=== PATIENT | female | born 1940 | race Caucasian/White ===

== ENCOUNTER 2019-09-24 06:46 | Inpatient (IN) | payer OTHER ==
[~2019-09-24] VITALS: Ht 160 cm; Wt 93.6 kg
[~2019-09-24 06:46] MED LIST: AMIT50 PO; ASPI325 PO; ATOR80 PO; CLON.5 PO; EZET10 PO; HYDACE5325 PO; LISHYD1012 PO; MECL25 PO; MELA3 PO; METF500 PO; POTCHL20ER PO; PROM25 PO; SPIHYD; VENL75; [UNRECOGNIZED DRUG - OTHER]
[2019-09-24 07:10] LABS: BASOPHILS ABSOLUTE AUTO 0.11 K/mm3 (0.00-0.23); BASOPHILS PERCENT AUTO 1 % (0-2); EOSINOPHILS ABSOLUTE AUTO 0.27 K/mm3 (0.00-0.68); EOSINOPHILS PERCENT AUTO 2 % (0-6); Hematocrit 46.5 % (33.0-51.0); Hemoglobin 14.1 g/dL (11.5-16.0); IMMATURE GRAN ABSOLUTE AUTO 0.11 K/mm3 (0.00-0.10); IMMATURE GRAN PERCENT AUTO 1 % (0-1); LYMPHOCYTES PERCENT AUTO 37 % (21-46); MONOCYTES ABSOLUTE AUTO 0.99 K/mm3 (0.16-1.47); MONOCYTES PERCENT AUTO 6 % (4-13); Mean Corpuscular HGB 26.4 pg (26.0-34.0); Mean Corpuscular HGB Conc 30.3 g/dL (31.5-36.5); Mean Corpuscular Volume 87 fL (80-100); Mean Platelet Volume 10.4 fL (9.1-12.4); NEUTROPHILS ABSOLUTE AUTO 8.68 K/mm3 (1.96-9.15); NEUTROPHILS PERCENT AUTO 54 % (41-73); Platelet Count 398 K/mm3 (150-400); RDW Coefficient Variation 14.1 % (11.7-14.2); Red Blood Cell Count 5.34 M/mm3 (3.80-5.20); White Blood Cell Count 16.16 K/mm3 (4.00-11.30)
[2019-09-24] MEDS ORDERED: CLOP75 PO (07:24)
[2019-09-24] MEDS ORDERED: ASPI81CH PO (07:24)
[2019-09-24] MEDS ORDERED: METO25ER PO (07:26)
[2019-09-24] MEDS ORDERED: FLAX PO (07:27)
[2019-09-24] MEDS ORDERED: THERA1 EACH PO (07:27)
[2019-09-24 07:42] LABS: Alanine Aminotransfer (ALT/SGP 34 U/L (12-78); Albumin/Globulin Ratio 0.9 (0.8-1.8); Alk Phos 113 U/L (50-136); Anion Gap 8 mmol/L (6-16); Aspartate Aminotrans (AST/SGOT 24 U/L (12-37); Bilirubin, Total 0.2 mg/dL (0.1-1.0); Blood Urea Nitrogen 19 mg/dL (8-24); CO2, Blood 22 mmol/L (21-32); Calcium, Blood 9.3 mg/dL (8.5-10.1); Chloride, Blood 104 mmol/L (98-108); Creatinine, Blood 0.61 mg/dL (0.40-1.00); Globulin, Blood 4.4 g/dL (2.2-4.0); Glomerular Filtration Rate >60 (60-); Glucose, Blood 186 mg/dL (70-99); Potassium, Blood 4.6 mmol/L (3.5-5.5); Sodium, Blood 134 mmol/L (136-145); Total Protein, Blood 8.4 g/dL (6.4-8.2)
[2019-09-24 09:41] LABS: Magnesium, Blood 2.2 mg/dL (1.6-2.4)
[2019-09-24 09:42] LABS: Thyroid Stimulating Hormone 3.11 uIU/mL (0.360-4.800)
[2019-09-24 13:45] LABS: Source, Urine Clean Catch
[2019-09-24 13:50] LABS: Bilirubin, Urine Neg (Neg); Blood, Urine 1+ (Neg); Glucose Qualitative, Urine 1+ (Neg); Ketones, Urine Neg (Neg); Leukocyte Esterase, Urine Neg (Neg); Nitrite, Urine Neg (Neg); Protein, Urine 4+ (Neg); Urobilinogen, Urine NORM (Normal)
[2019-09-24 13:56] LABS: Appearance, Urine Clear (Clear); Color, Urine Yellow (P-Yellow)
[2019-09-24 14:01] LABS: Amorphous Mod (0-Heavy); Bacteria Mod /hpf; Granular Casts 0-2 /lpf (0); Hyaline Casts 0-2 /lpf (0-2); Mucus Light (0-Heavy); Squamous Epithelial Cells Few /hpf (Few); White Blood Cells, Urine 0-2 /hpf (0-5)
--- NOTE | 2019-09-24 14:30 | NUR ---
PT ARRIVED TO PCU 9 VIA GURNEY FROM ED. REPORT FROM SANJAY ECHEVERRIA. PT AWAKE A/OX3, PLEASANT AND COOPERATIVE WITH CARE, HURTS HER BACK TO LAY FLAT, OTHERWISE NO PAIN, STATES SHE IS BREATHING MUCH BETTER NOW, SATS ARE 91% ON RA, RESP EVEN AND MILDLY LABORED, NO COUGH NOTED, HRR, TELE IN PLACE RUNNING SR WITH LOTS OF PACS, 3+ EDEMA NOTED TO LEFT LE, SHE STATES HER WHOLE LEFT SIDE IS OFF BECAUSE OF 2 CVA'S SHE HAD IN 2016 AND 2017, FERMENTER ARE PRETTY EQUAL, UNABLE TO MOVE LEFT FOOT EXCEPT GROSS MOVEMENT, JAMAAL, IV X2 TO LEFT HAND AN RIGHT AC, SITES ARE CLEAR AND PATENT, S.L. BTX4, ABD LARGE SOFT NONTENDER, SAMUEL CATH DRAINING CLEAR YELLOW URINE, SKIN HAS VERY DRY FEET, OTHERWISE C/W/D, MOVES UPPER EXT WELL, RIGHT LEG IS STRONG, ORIENTED TO ROOM LAYOUT AND CALL SYSTEM, CALL LIGHT IN REACH.
[2019-09-24] MEDS ORDERED: METO25ER (14:58)
--- NOTE | 2019-09-24 16:17 | NUR ---
ECHOCARDIOGRAM COMPLETED
--- NOTE | 2019-09-24 18:39 | NUR ---
PT DAUGHTER IN TO ASSIST HER WITH DINNER, PT DENIES COMPLAINTS EXCEPT THAT HER LEG HURTS. NO FURTHER CHANGES THIS SHIFT. CALL LIGHT IN REACH.
--- NOTE | 2019-09-24 20:45 | NUR ---
Assumed care Pt alert and oriented, slow to respond at times. VSS. Bipap in room but breathing even and unlabored on RA. Denies SOB. q2 turns, compliant with care and repositions.Skin overall CDI, edema to BLE. See shift assessment for detailed systems assessment. Pt is blind, hard of hearing. Instructed to use call light, call light placed in bed and accessible to pt. Pt uses call light on and off. Sometimes calls out for needs. Lott patent and draining. Esperanza care provided to pt. moves all extremities independantly. Pt with moderate anxiety. Repositioned which aided in comfort and decreased anxiety per pt. Will continue to monitor. no acute concern at this time. pt appears comfortable and in no apparent sign of distress.
--- NOTE | 2019-09-25 02:59 | NUR ---
No acute changes this shift. VSS. remains on RA. Report off to JACKI Jenkins who assumes care.
[2019-09-25 04:27] LABS: BASOPHILS ABSOLUTE AUTO 0.03 K/mm3 (0.00-0.23); BASOPHILS PERCENT AUTO 0 % (0-2); EOSINOPHILS ABSOLUTE AUTO 0.09 K/mm3 (0.00-0.68); EOSINOPHILS PERCENT AUTO 1 % (0-6); Hematocrit 38.3 % (33.0-51.0); Hemoglobin 11.9 g/dL (11.5-16.0); IMMATURE GRAN ABSOLUTE AUTO 0.03 K/mm3 (0.00-0.10); IMMATURE GRAN PERCENT AUTO 0 % (0-1); LYMPHOCYTES ABSOLUTE AUTO 2.15 K/mm3 (0.84-5.20); LYMPHOCYTES PERCENT AUTO 21 % (21-46); MONOCYTES PERCENT AUTO 8 % (4-13); Mean Corpuscular HGB 26.4 pg (26.0-34.0); Mean Corpuscular HGB Conc 31.1 g/dL (31.5-36.5); Mean Corpuscular Volume 85 fL (80-100); Mean Platelet Volume 10.6 fL (9.1-12.4); NEUTROPHILS ABSOLUTE AUTO 7.07 K/mm3 (1.96-9.15); NEUTROPHILS PERCENT AUTO 70 % (41-73); Platelet Count 282 K/mm3 (150-400); RDW Coefficient Variation 14.2 % (11.7-14.2); RDW Standard Deviation 44.3 fL (35.1-46.3); White Blood Cell Count 10.17 K/mm3 (4.00-11.30)
[2019-09-25 04:44] LABS: Alanine Aminotransfer (ALT/SGP 27 U/L (12-78); Albumin, Blood 3.3 g/dL (3.4-5.0); Albumin/Globulin Ratio 0.9 (0.8-1.8); Alk Phos 89 U/L (50-136); Anion Gap 8 mmol/L (6-16); Aspartate Aminotrans (AST/SGOT 31 U/L (12-37); Bilirubin, Total 0.4 mg/dL (0.1-1.0); Blood Urea Nitrogen 14 mg/dL (8-24); Bun/Creatinine Ratio 20.5 (12.0-20.0); CO2, Blood 29 mmol/L (21-32); Calcium, Blood 8.5 mg/dL (8.5-10.1); Chloride, Blood 102 mmol/L (98-108); Creatinine, Blood 0.68 mg/dL (0.40-1.00); Globulin, Blood 3.7 g/dL (2.2-4.0); Glomerular Filtration Rate >60 (60-); Glucose, Blood 112 mg/dL (70-99); Potassium, Blood 3.6 mmol/L (3.5-5.5); Sodium, Blood 139 mmol/L (136-145)
[2019-09-25 11:41] LABS: Magnesium, Blood 2.1 mg/dL (1.6-2.4)
--- NOTE | 2019-09-25 20:15 | NUR ---
Assumed Care Pt presents sitting in bed, eyes closed. VSS. No apparent sign of distress. Pt conversing appropraitely overall with staff. Confused and forgetful at times. Pt uses call light occasionally, calls out at times for help. Pt instructed to use call light, bed alarm in place, room monitored closely as it is by the nurses station. Pt swallows medications whole with water. Refusing Lipitor "because it destroys your kidneys". Pt educated on risk/benefit of lipitor, continues to refuse. See shift assessment for detailed assessment. Requiring assistance with repositions and boosting q2. Compliant and cooperative with care. No acute concerns at start of shift. Will continue to monitor.
--- NOTE | 2019-09-26 02:19 | NUR ---
Pt, who was previously calm and cooperative with care suddenly becomes agitated. pt pulling on pryor cath saying "take this out of me right now". Pt assisted to BSC with two RN's and FWW, moderate assistance needed as pt has left sided weakness d/t previous cva. Pt capable of BSC transfer. Catheter removed per pt request at 0215. Will continue to monitor.
[2019-09-26 03:57] LABS: Hematocrit 38.4 % (33.0-51.0); Hemoglobin 12.2 g/dL (11.5-16.0); Mean Corpuscular HGB 27.1 pg (26.0-34.0); Mean Corpuscular HGB Conc 31.8 g/dL (31.5-36.5); Mean Corpuscular Volume 85 fL (80-100); Mean Platelet Volume 10.8 fL (9.1-12.4); Platelet Count 190 K/mm3 (150-400); RDW Coefficient Variation 14.4 % (11.7-14.2); RDW Standard Deviation 44.3 fL (35.1-46.3); Red Blood Cell Count 4.51 M/mm3 (3.80-5.20); White Blood Cell Count 9.31 K/mm3 (4.00-11.30)
[2019-09-26 04:25] LABS: Albumin, Blood 3.3 g/dL (3.4-5.0); Anion Gap 7 mmol/L (6-16); Blood Urea Nitrogen 12 mg/dL (8-24); Bun/Creatinine Ratio 21.1 (12.0-20.0); CHOL/HDL RATIO 4.1; CO2, Blood 26 mmol/L (21-32); Calcium, Blood 8.6 mg/dL (8.5-10.1); Chloride, Blood 104 mmol/L (98-108); Cholesterol 200 mg/dL (50-200); Creatinine, Blood 0.57 mg/dL (0.40-1.00); Glomerular Filtration Rate >60 (60-); Glucose, Blood 108 mg/dL (70-99); HDL Cholesterol 49 mg/dL (>39); LDL/HDL RATIO 2.5; Low Density Lipoprotein Chol 124 mg/dL (0-110); Phosphorus, Blood 3.3 mg/dL (2.5-4.9); Potassium, Blood 4.2 mmol/L (3.5-5.5); Sodium, Blood 137 mmol/L (136-145); Triglycerides 135 mg/dL (30-160); Very Low Density Lipoprot Chol 27 mg/dL (6-32)
--- NOTE | 2019-09-26 04:38 | NUR ---
Shift Summary VSS. Confused, forgetful, agitated at end of this shift. Pt alert and conversive. Lott Cath removed at 0215, awaiting pt void at this time. Pt has set off call light x3 times this shift. Pt up with 2 to bsc. Edema 2+to ble. Pt with diminished lung sounds, o2 saturations >92%. Denies feeling SOB, needs assistance with repositions and boosts. VSS. Will continue to monitor until day RN assumes care.
--- NOTE | 2019-09-26 11:05 | NUR ---
AM NOTE PT AWAKEND THIS MORNING ANGRY, CUSSING, CONFUSED. SHE THOUGHT WE WERE IN HER HOME. IT TOOK AWHILE OF SITTING WITH HER AND TALKING FOR HER TO REORIENT TO LOCATION AND THAT SHE WAS SAFE. CONTINUE POT.
--- NOTE | 2019-09-26 21:01 | NUR ---
Assumed care pt presents sitting in chair, flat affect, cooperative. VSS. No apprent sign of distres. Alert and oriented, following commands appropriately. Fluid restriction of 1500 total qD, 500 ml available for this shift. See shift assessment for detailed assessment. Breathing even and unlabored on RA. Pt takes medications whole with water. Pt refusing Lipitor. Educated provided. Pt up to BSC with one and fww. Tolerated well. Call light in reach; bed alarm on. Will continue to monitor. No acute concerns a this time.
[2019-09-27 04:21] LABS: Anion Gap 7 mmol/L (6-16); Blood Urea Nitrogen 19 mg/dL (8-24); Bun/Creatinine Ratio 31.2 (12.0-20.0); CO2, Blood 28 mmol/L (21-32); Calcium, Blood 8.7 mg/dL (8.5-10.1); Chloride, Blood 104 mmol/L (98-108); Creatinine, Blood 0.61 mg/dL (0.40-1.00); Glomerular Filtration Rate >60 (60-); Glucose, Blood 104 mg/dL (70-99); Potassium, Blood 3.8 mmol/L (3.5-5.5); Sodium, Blood 139 mmol/L (136-145)
--- NOTE | 2019-09-27 06:06 | NUR ---
Shift Summary No acute events overnight. No changes from assumption of care note. Pt slept for approx 8 hours this shift. up to bsc with 1 and fww, tolerated well. No PEREZ. No acute changes from shift assessment. VSS. Pt alert and oriented throughout night. Will continue to monitor and provide care until day RN assumes care.
--- NOTE | 2019-09-27 08:26 | NUR ---
AM NOTE... ASSUMED CARE OF PT APROX 0700. PT IS A&Ox4 AND WAS ADMITTED FOR NEW ONSET CHF. PT IS ON 1.5 L FLUID RESTRICTION. PT WAS SWITCHED OR ORAL DIURETICS TODAY. PT IS UP IN THE CHAIR FOR BREAKFAST ASKING TO D/C HOME TODAY. PT'S VS STABLE. L/S CLEAR T/O ON RA. PT HAS TRACE EDEMA TO HER BLE. BT PRESENT AND NORMOACTIVE ABD IS SOFT AND NONTENDER TO PALP. CALL LIGHT IN REACH WILL CONTINUE TO MONITOR.
[2019-09-27] MEDS ORDERED: ATOR20 PO (11:11)
[2019-09-27] MEDS ORDERED: Prinivil10 MG PO (11:12)
[2019-09-27] MEDS ORDERED: TORSE20 PO (11:13)
== END 2019-09-27 13:06 | disposition home or self-care (01) | DRG 280 ==
LOC: ER 06:46 → PCU 09:25
PROVIDERS: Emergency Medicine; Hospitalist; Nurse Practitioner Acute Care; ADMIT Internal Medicine
DX: I11.0 Hypertensive heart disease with heart failure (principal); I50.21 Acute systolic (congestive) heart failure; I21.4 Non-ST elevation (NSTEMI) myocardial infarction; J96.01 Acute respiratory failure with hypoxia; J44.9 Chronic obstructive pulmonary disease, unspecified; E11.9 Type 2 diabetes mellitus without complications; E78.5 Hyperlipidemia, unspecified; E66.01 Morbid (severe) obesity due to excess calories; F41.1 Generalized anxiety disorder; R65.10 Systemic inflammatory response syndrome (SIRS) of non-infectious origin without acute organ dysfunction; M81.0 Age-related osteoporosis without current pathological fracture; F32.9 Major depressive disorder, single episode, unspecified; Z66 Do not resuscitate; Z86.73 Personal history of transient ischemic attack (TIA), and cerebral infarction without residual deficits; Z87.891 Personal history of nicotine dependence; Z88.5 Allergy status to narcotic agent; Z79.82 Long term (current) use of aspirin; Z79.02 Long term (current) use of antithrombotics/antiplatelets; Z79.84 Long term (current) use of oral hypoglycemic drugs
CPT/HCPCS: 36415; 51702; 71045; 71260; 80048; 80053; 80061; 80069; 81001; 82947; 83036; 83605; 83735; 83880; 84100; 84145; 84443; 84484; 85025; 85027; 87086; 93005; 93010; 93306; 94660; 96365-59; 96368; 96372-59; 96375-59; 97116; 97162; 97166; 97530; 99285-25; A9270-GY; J0456; J0696; J1650; J1940; J2060; J7050; Q9967

== ENCOUNTER 2020-01-16 13:26 | Inpatient (IN) | payer OTHER ==
[~2020-01-16] VITALS: Ht 160 cm; Wt 111.1 kg
[~2020-01-16 13:26] MED LIST changes: +ATOR20 PO; +Aspir 8181 MG PO; +CLOP75 PO; +Daily Multiple1 EACH PO; +FLAX PO; +METO25ER PO; +Prinivil10 MG PO; +TORSE20 PO
[2020-01-16 14:21] LABS: BASOPHILS ABSOLUTE AUTO 0.04 K/mm3 (0.00-0.23); BASOPHILS PERCENT AUTO 0 % (0-2); EOSINOPHILS ABSOLUTE AUTO 0.06 K/mm3 (0.00-0.68); EOSINOPHILS PERCENT AUTO 0 % (0-6); Hematocrit 29.5 % (33.0-51.0); Hemoglobin 9.1 g/dL (11.5-16.0); IMMATURE GRAN ABSOLUTE AUTO 0.07 K/mm3 (0.00-0.10); IMMATURE GRAN PERCENT AUTO 1 % (0-1); LYMPHOCYTES ABSOLUTE AUTO 2.16 K/mm3 (0.84-5.20); LYMPHOCYTES PERCENT AUTO 16 % (21-46); MONOCYTES ABSOLUTE AUTO 0.41 K/mm3 (0.16-1.47); MONOCYTES PERCENT AUTO 3 % (4-13); Mean Corpuscular HGB 26.7 pg (26.0-34.0); Mean Corpuscular HGB Conc 30.8 g/dL (31.5-36.5); Mean Corpuscular Volume 87 fL (80-100); Mean Platelet Volume 10.8 fL (9.1-12.4); NEUTROPHILS ABSOLUTE AUTO 11.23 K/mm3 (1.96-9.15); NEUTROPHILS PERCENT AUTO 80 % (41-73); Platelet Count 291 K/mm3 (150-400); RDW Coefficient Variation 13.9 % (11.7-14.2); RDW Standard Deviation 43.9 fL (35.1-46.3); Red Blood Cell Count 3.41 M/mm3 (3.80-5.20); White Blood Cell Count 13.97 K/mm3 (4.00-11.30)
[2020-01-16 14:39] LABS: Alanine Aminotransfer (ALT/SGP 28 U/L (12-78); Albumin, Blood 3.2 g/dL (3.4-5.0); Alk Phos 76 U/L (50-136); Anion Gap 7 mmol/L (6-16); Aspartate Aminotrans (AST/SGOT 25 U/L (12-37); Bilirubin, Total 0.4 mg/dL (0.1-1.0); Blood Urea Nitrogen 44 mg/dL (8-24); Bun/Creatinine Ratio 71.8 (12.0-20.0); CO2, Blood 25 mmol/L (21-32); Calcium, Blood 8.6 mg/dL (8.5-10.1); Chloride, Blood 108 mmol/L (98-108); Creatinine, Blood 0.61 mg/dL (0.40-1.00); Globulin, Blood 3.3 g/dL (2.2-4.0); Glomerular Filtration Rate >60 (60-); Glucose, Blood 182 mg/dL (70-99); Sodium, Blood 140 mmol/L (136-145); Total Protein, Blood 6.5 g/dL (6.4-8.2); Troponin I 0.039 ng/mL (0.000-0.040)
[2020-01-16] MEDS ORDERED: Pravachol40 MG PO (17:22)
[2020-01-16] MEDS ORDERED: LOSA25 PO (17:22)
[2020-01-16 17:48] LABS: Percent Saturation 17.9 % (15.0-50.0)
--- NOTE | 2020-01-16 18:13 | NUR ---
PT TRANSFERRED TO [facility] VIA GURNEY FROM ER. History, Chart, Medications and Allergies reviewed before start of procedure. Lungs clear T/O to Auscultation. Patient confirms NPO status and agrees with scheduled surgery. PT TO BE ADMITTED TO ROOM 331.
--- NOTE | 2020-01-16 18:52 | NUR ---
01/16/20 1852 Macarena Mena History, Chart, Medications and Allergies reviewed before start of procedure.PATIENT CONFIRMS NPO STATUS AND AGREES WITH SCHEDULED PROCEDURE. MONITOR INTACT WITH CONTINUOUS PULSE OXIMETRY AND INTERMITTENT BP. O2 VIA N/C INTACT THROUGHOUT SEDATION/PROCEDURE. 3-LEAD EKG REVIEWED WITH PHYSICIAN PRIOR TO START OF PROCEDURE. DR. WOOTEN PROVIDING MAC. Bite Block Placed
--- NOTE | 2020-01-17 05:02 | NUR ---
SHIFT SUMMARY RECIEVED REPORT FROM JEANINE IN SX @ 192. ARRIVED TO MEDICAL FLOOR VIA STRETCHER @ 193. ORIENTED TO ROOM AND CALL SYSTEM. STAFF MADE AWARE THAT PATIENT HAS DIFFICULTY SEEING. A/O, ABLE TO MAKE NEEDS KNOWN. COOPERATIVE WITH CARE. NO C/O PAIN/DISCOMFORT. UP WITH 1P ASSIST /c FWW TO BSC MULTIPLE TIMES; LITTLE SUCCESS WITH BM HOWEVER WAS ABLE TO VOID. NO ACUTE CHANGES NOTED THUS FAR. IV FLUIDS INFUSED WITHOUT COMPLICATION. BED REMAINED IN LOWEST POSITION. CALL LIGHT AND BELONGINGS WITHIN REACH. WCTM. REPORT TO ONCOMING RN.
[2020-01-17 05:56] LABS: BASOPHILS ABSOLUTE AUTO 0.05 K/mm3 (0.00-0.23); BASOPHILS PERCENT AUTO 0 % (0-2); EOSINOPHILS ABSOLUTE AUTO 0.09 K/mm3 (0.00-0.68); EOSINOPHILS PERCENT AUTO 1 % (0-6); Hematocrit 25.4 % (33.0-51.0); Hemoglobin 7.8 g/dL (11.5-16.0); IMMATURE GRAN ABSOLUTE AUTO 0.04 K/mm3 (0.00-0.10); IMMATURE GRAN PERCENT AUTO 0 % (0-1); LYMPHOCYTES ABSOLUTE AUTO 2.58 K/mm3 (0.84-5.20); LYMPHOCYTES PERCENT AUTO 20 % (21-46); MONOCYTES ABSOLUTE AUTO 0.72 K/mm3 (0.16-1.47); MONOCYTES PERCENT AUTO 6 % (4-13); Mean Corpuscular HGB 26.9 pg (26.0-34.0); Mean Corpuscular HGB Conc 30.7 g/dL (31.5-36.5); Mean Corpuscular Volume 88 fL (80-100); Mean Platelet Volume 10.6 fL (9.1-12.4); NEUTROPHILS ABSOLUTE AUTO 9.69 K/mm3 (1.96-9.15); NEUTROPHILS PERCENT AUTO 74 % (41-73); Platelet Count 248 K/mm3 (150-400); RDW Coefficient Variation 14.4 % (11.7-14.2); RDW Standard Deviation 45.9 fL (35.1-46.3); White Blood Cell Count 13.17 K/mm3 (4.00-11.30)
[2020-01-17 06:09] LABS: International Normalized Ratio 1.03
[2020-01-17 06:14] LABS: Anion Gap 2 mmol/L (6-16); Blood Urea Nitrogen 32 mg/dL (8-24); Bun/Creatinine Ratio 52.5 (12.0-20.0); CO2, Blood 29 mmol/L (21-32); Calcium, Blood 8.1 mg/dL (8.5-10.1); Chloride, Blood 112 mmol/L (98-108); Creatinine, Blood 0.61 mg/dL (0.40-1.00); Glomerular Filtration Rate >60 (60-); Glucose, Blood 114 mg/dL (70-99); Sodium, Blood 143 mmol/L (136-145)
--- NOTE | 2020-01-17 08:12 | NUR ---
DISCUSSED LABS W/PATIENT. REFUSES BLOOD TRANSFUSION.
--- NOTE | 2020-01-17 10:00 | NUR ---
DISCUSS CONDITION W/DAUGHTER, JOEY. WAS ABLE TO UPDATE MED LIST.
[2020-01-17] MEDS ORDERED: DOCU100 PO (10:08)
[2020-01-17 11:33] LABS: Hematocrit 23.7 % (33.0-51.0); Hemoglobin 7.1 g/dL (11.5-16.0)
--- NOTE | 2020-01-17 12:28 | NUR ---
daughter, armando, updated on condition. will go to o.r. for repeat procedure to see if having another bleed. will update her later
--- NOTE | 2020-01-17 14:21 | NUR ---
01/17/20 1421 Trevon Wang History, Chart, Medications and Allergies reviewed before start of procedure.MONITOR INTACT WITH CONTINUOUS PULSE OXIMETRY AND INTERMITTENT BP.3-LEAD EKG REVIEWED WITH PHYSICIAN PRIOR TO START OF PROCEDURE.O2 VIA N/C INTACT THROUGHOUT SEDATION/PROCEDURE. See Anesthesia record.
[2020-01-17 17:53] LABS: Anion Gap 10 mmol/L (6-16); Blood Urea Nitrogen 22 mg/dL (8-24); Bun/Creatinine Ratio 31.3 (12.0-20.0); CO2, Blood 20 mmol/L (21-32); Calcium, Blood 7.6 mg/dL (8.5-10.1); Chloride, Blood 108 mmol/L (98-108); Glomerular Filtration Rate >60 (60-); Glucose, Blood 148 mg/dL (70-99); Potassium, Blood 3.6 mmol/L (3.5-5.5); Sodium, Blood 138 mmol/L (136-145)
--- NOTE | 2020-01-17 18:19 | NUR ---
ALERT. ORIENTED. HAD EGD AGAIN TO CHECK FOR OTHER BLEEDS. HAD CT ABD FOR SAME. PATIENT TOLERATED WELL. RECEIVED IV INFUSION IRON AND EPOGEN SC. PATIENT REFUSES BLOOD PRODUCTS. ONE PERSON ASSIST. TIRES EASILY. GOOD APPETITE. NO ACUTE CHANGES. WCTM
--- NOTE | 2020-01-18 03:24 | NUR ---
SHIFT SUMMARY PATIENT HAD NO ACUTE CHANGES OBSERVED. AXOX 3 AND ONE ASSIST TO BSC W/FWW. TAKES MEDICATION WHOLE WITH WATER. CBG 150. PIV REMAINS INTACT. IV PROTONIX INFUSING AT 10 ML/HR. ON 2L O2 NC AND RA BASELINE. VSS/AFEBRILE. DENIES PAIN, SOB, AND N/V. RT IN FOR BREATHING TX. CALL LIGHT IN REACH. BED IN LOWEST POSITION. WILL CONTINUE TO MONITOR UNTIL DAY SHIFT NURSE ASSUMES CARE.
[2020-01-18 05:15] LABS: Hematocrit 21.5 % (33.0-51.0); Hemoglobin 6.6 g/dL (11.5-16.0); Mean Corpuscular HGB Conc 30.7 g/dL (31.5-36.5); Mean Corpuscular Volume 88 fL (80-100); Mean Platelet Volume 10.6 fL (9.1-12.4); NRBC ABSOLUTE 0.02 K/mm3 (0.00-0.02); NRBC Auto 0.2 /100 WBC (0.0-0.2); Platelet Count 215 K/mm3 (150-400); RDW Coefficient Variation 14.6 % (11.7-14.2); RDW Standard Deviation 46.9 fL (35.1-46.3); Red Blood Cell Count 2.44 M/mm3 (3.80-5.20); White Blood Cell Count 11.18 K/mm3 (4.00-11.30)
[2020-01-18 05:37] LABS: Albumin, Blood 2.9 g/dL (3.4-5.0); Anion Gap 5 mmol/L (6-16); Blood Urea Nitrogen 16 mg/dL (8-24); Bun/Creatinine Ratio 26.4 (12.0-20.0); CO2, Blood 27 mmol/L (21-32); Calcium, Blood 7.7 mg/dL (8.5-10.1); Chloride, Blood 108 mmol/L (98-108); Creatinine, Blood 0.61 mg/dL (0.40-1.00); Glomerular Filtration Rate >60 (60-); Glucose, Blood 117 mg/dL (70-99); Phosphorus, Blood 3.2 mg/dL (2.5-4.9); Potassium, Blood 3.3 mmol/L (3.5-5.5); Sodium, Blood 140 mmol/L (136-145)
--- NOTE | 2020-01-18 14:25 | NUR ---
PT TO IMAGING FOR GI BLOOD LOSS EXAM.
--- NOTE | 2020-01-18 15:51 | NUR ---
PT ARRIVED BACK TO ROOM FROM IMAGING AT 1551.
--- NOTE | 2020-01-18 16:49 | NUR ---
SHIFT SUMMARY- PT A&O, DNR BRACELET ON LEFT WRIST. NO ACUTE CHANGES T/O SHIFT. PT WENT FOR GI BLOOD LOSS EXAM TODAY, AWAITING RESULTS. HGB 6.6 TODAY. HOSPITALIST CAME IN TO TALK TO PT ABOUT POSSIBLE RISKS AND COMPLICATIONS OF NOT RECIEVING BLOOD PRODUCTS. PT STILL REFUSES BLOOD PRODUCTS AND UNDERSTANDS THE POSSIBLE RISKS. PT STATES "CAN'T BELEIVE I HAVE LIVED THIS LONG ALREADY". PT SEEMS CONTENT WITH HER CHOICE. PT STATES SHE FEELS BETTER AFTER RETURNING FROM IMAGERY. PROTONIX DRIP CONTINUED.
--- NOTE | 2020-01-18 17:15 | NUR ---
SHIFT SUMMARY- PT A/OX3, 1 ASSIST UP TO BSC. LS ON RA. SOB WITH EXERTION AND AT REST. PT WITH MILD LEFT SIDED WEAKNESS R/T HX OF CVA, LEFT LEG SWELLING GREATER THAN RIGHT, PT REPORTS NORMAL FOR HER. PT WITH GI BLOOD LOSS STUDY TODAY. PT REMAINS ON PROTONIX GTT, NO BLEEDING NOTED TODAY. PT CONT TO REFUSE BLOOD AND STATES SHE NEVER EXPECTED TO LIVE THIS LONG. NO OTHER ACUTE CHANGES THIS SHIFT.
[2020-01-19 00:28] LABS: Source, Urine Clean Catch
[2020-01-19 00:30] LABS: Bilirubin, Urine Neg (Neg); Blood, Urine 1+ (Neg); Glucose Qualitative, Urine 1+ (Neg); Ketones, Urine Neg (Neg); Leukocyte Esterase, Urine 3+ (Neg); Nitrite, Urine Neg (Neg); Protein, Urine Neg (Neg); Specific Gravity, Urine 1.015 (1.003-1.022); Urobilinogen, Urine NORM (Normal)
[2020-01-19 00:38] LABS: Appearance, Urine Hazy (Clear); Color, Urine Yellow (P-Yellow)
[2020-01-19 00:44] LABS: Bacteria Mod /hpf; Red Blood Cells, Urine 0-2 /hpf (0-2); Squamous Epithelial Cells Few /hpf (Few); White Blood Cells, Urine 50-100 /hpf (0-5)
--- NOTE | 2020-01-19 04:56 | NUR ---
SHIFT SUMMARY: VSS. AFEB. AAOX3. ABLE TO MAKE NEEDS KNOWN. T/F W/SBA AND FWW. CONT W/EXERTIONAL SOB. PT STATES IN GENERAL, SHE FEELS MUCH BETTER COMPARED TO WHEN SHE FIRST CAME TO THE HOSPITAL. NO ACUTE CHANGES OVERNIGHT. WILL CONT TO MONITOR.
[2020-01-19 05:28] LABS: Hematocrit 21.6 % (33.0-51.0); Hemoglobin 6.6 g/dL (11.5-16.0); Mean Corpuscular HGB 26.8 pg (26.0-34.0); Mean Corpuscular HGB Conc 30.6 g/dL (31.5-36.5); Mean Corpuscular Volume 88 fL (80-100); Mean Platelet Volume 10.5 fL (9.1-12.4); NRBC ABSOLUTE 0.04 K/mm3 (0.00-0.02); NRBC Auto 0.4 /100 WBC (0.0-0.2); Platelet Count 246 K/mm3 (150-400); RDW Coefficient Variation 14.9 % (11.7-14.2); RDW Standard Deviation 46.8 fL (35.1-46.3); Red Blood Cell Count 2.46 M/mm3 (3.80-5.20); White Blood Cell Count 10.04 K/mm3 (4.00-11.30)
[2020-01-19 05:45] LABS: Anion Gap 6 mmol/L (6-16); Blood Urea Nitrogen 10 mg/dL (8-24); Bun/Creatinine Ratio 15.9 (12.0-20.0); CO2, Blood 28 mmol/L (21-32); Chloride, Blood 107 mmol/L (98-108); Creatinine, Blood 0.63 mg/dL (0.40-1.00); Glomerular Filtration Rate >60 (60-); Glucose, Blood 120 mg/dL (70-99); Potassium, Blood 3.2 mmol/L (3.5-5.5); Sodium, Blood 141 mmol/L (136-145)
--- NOTE | 2020-01-19 17:31 | NUR ---
SHIFT SUMMARY- PT A/OX3, 1 ASSIST UP WITH FWW. LS DIMINISHED, ON RA. PT DOES GET VERY SOB WITH ANY EXERTION. PT CONT TO REFUSE BLOOD TRANSFUSION. PROTONIX GTT DC'D AND CHANGED TO BID. NO BLEEDING NOTED THIS SHIFT. PT DIET CHANGED TO MECHANICAL SOFT AND PT TOLERATED WELL FOR LUNCH. NO OTHER ACUTE CHANGES THIS SHIFT.
--- NOTE | 2020-01-20 05:16 | NUR ---
SHIFT SUMMARY: VSS. AFEB. AAOX3. COMMUNICATES NEEDS. T/F W/SBA TO AND FROM BSC TONIGHT. EXERTIONAL DYSPNEA W/ANY MOVEMENT. APPEARS PALE. NO BM TONIGHT. ERYTHEMA NOTED ON L ARM- OUTLINED W/SHARPIE AND WILL ASK DAY RN TO POINT OUT TO PHYSICIAN. BED LOW, CALL BUTTON IN REACH. NO ACUTE CHANGES TONIGHT, WILL CONT TO MONITOR.
[2020-01-20 05:33] LABS: Hematocrit 20.9 % (33.0-51.0); Hemoglobin 6.4 g/dL (11.5-16.0); Mean Corpuscular HGB Conc 30.6 g/dL (31.5-36.5); Mean Corpuscular Volume 88 fL (80-100); Mean Platelet Volume 10.7 fL (9.1-12.4); NRBC ABSOLUTE 0.08 K/mm3 (0.00-0.02); NRBC Auto 0.8 /100 WBC (0.0-0.2); Platelet Count 276 K/mm3 (150-400); RDW Coefficient Variation 15.3 % (11.7-14.2); RDW Standard Deviation 46.1 fL (35.1-46.3); Red Blood Cell Count 2.37 M/mm3 (3.80-5.20); White Blood Cell Count 9.58 K/mm3 (4.00-11.30)
[2020-01-20 05:56] LABS: Albumin, Blood 2.8 g/dL (3.4-5.0); Anion Gap 3 mmol/L (6-16); Blood Urea Nitrogen 12 mg/dL (8-24); Bun/Creatinine Ratio 15.2 (12.0-20.0); CO2, Blood 29 mmol/L (21-32); Calcium, Blood 8.3 mg/dL (8.5-10.1); Chloride, Blood 106 mmol/L (98-108); Creatinine, Blood 0.79 mg/dL (0.40-1.00); Glomerular Filtration Rate >60 (60-); Glucose, Blood 110 mg/dL (70-99); Magnesium, Blood 2.2 mg/dL (1.6-2.4); Potassium, Blood 3.5 mmol/L (3.5-5.5); Sodium, Blood 138 mmol/L (136-145)
--- NOTE | 2020-01-20 07:22 | NUR ---
R HAND IV INFILTRATED. PT CURRENTLY DOES NOT HAVE IV ACCESS. CHARGE NURSE NOTIFIED.
[2020-01-20] MEDS ORDERED: SENN187 PO (12:29)
[2020-01-20] MEDS ORDERED: PANT40 PO (12:30)
== END 2020-01-20 12:54 | disposition home or self-care (01) | DRG 381 ==
LOC: ER 13:26 → MEDS 16:59
PROVIDERS: Emergency Medicine; Internal Medicine; Internal Medicine Gastroenterology; ADMIT Internal Medicine
PROC: 0D538ZZ Destruction of Lower Esophagus, Via Natural or Artificial Opening Endoscopic (ICD-10-PCS; principal; 2020-01-16 16:45)
PROC: 0W3P8ZZ Control Bleeding in Gastrointestinal Tract, Via Natural or Artificial Opening Endoscopic (ICD-10-PCS; 2020-01-17)
DX: K22.11 Ulcer of esophagus with bleeding (principal); I50.32 Chronic diastolic (congestive) heart failure; D62 Acute posthemorrhagic anemia; Z68.41 Body mass index [BMI] 40.0-44.9, adult; I25.2 Old myocardial infarction; K31.811 Angiodysplasia of stomach and duodenum with bleeding; M81.0 Age-related osteoporosis without current pathological fracture; J44.9 Chronic obstructive pulmonary disease, unspecified; I25.10 Atherosclerotic heart disease of native coronary artery without angina pectoris; K29.80 Duodenitis without bleeding; E87.6 Hypokalemia; E88.81 Metabolic syndrome and other insulin resistance; E66.9 Obesity, unspecified; D72.829 Elevated white blood cell count, unspecified
CPT/HCPCS: 36415; 71046; 74177; 78278; 80048; 80053; 80069; 81001; 82607; 82728; 82746; 82947; 83540; 83550; 83735; 83880; 84484; 85014; 85018; 85025; 85027; 85610; 93005; 93010; 94640; 94760; 96374; 99285-25; A9270; A9560; C9113; J0171; J1815; J2001; J2704; J2916; J3420; J3480; J7050; J7120; Q5106; Q9967; U0002

== ENCOUNTER 2021-06-27 00:51 | Inpatient (IN) | payer OTHER ==
[~2021-06-27] VITALS: Ht 157.5 cm; Wt 102.2 kg
[~2021-06-27 00:51] MED LIST changes: -AMIT50 PO; +Amitriptyline H10 MG PO; +DOCU100 PO; +LOSA25 PO; -MELA3 PO; +MELATONIN1010 PO; +PANT40 PO; +Pravachol40 MG PO; +SENN187 PO
[2021-06-27] MEDS ORDERED: CLOP75 PO (01:11)
[2021-06-27] MEDS ORDERED: LOSA25 PO (01:11)
[2021-06-27 01:22] LABS: BASOPHILS ABSOLUTE AUTO 0.03 K/mm3 (0.00-0.23); BASOPHILS PERCENT AUTO 0 % (0-2); EOSINOPHILS ABSOLUTE AUTO 0.11 K/mm3 (0.00-0.68); EOSINOPHILS PERCENT AUTO 1 % (0-6); Hematocrit 36.4 % (33.0-51.0); Hemoglobin 11.4 g/dL (11.5-16.0); IMMATURE GRAN ABSOLUTE AUTO 0.08 K/mm3 (0.00-0.10); IMMATURE GRAN PERCENT AUTO 1 % (0-1); LYMPHOCYTES PERCENT AUTO 9 % (21-46); MONOCYTES ABSOLUTE AUTO 0.62 K/mm3 (0.16-1.47); MONOCYTES PERCENT AUTO 8 % (4-13); Mean Corpuscular HGB 26.1 pg (26.0-34.0); Mean Corpuscular HGB Conc 31.3 g/dL (31.5-36.5); Mean Corpuscular Volume 84 fL (80-100); Mean Platelet Volume 9.8 fL (9.1-12.4); NEUTROPHILS ABSOLUTE AUTO 6.68 K/mm3 (1.96-9.15); NEUTROPHILS PERCENT AUTO 81 % (41-73); Platelet Count 390 K/mm3 (150-400); RDW Coefficient Variation 13.2 % (11.7-14.2); RDW Standard Deviation 40.6 fL (35.1-46.3); Red Blood Cell Count 4.36 M/mm3 (3.80-5.20); White Blood Cell Count 8.22 K/mm3 (4.00-11.30)
[2021-06-27 01:44] LABS: Alanine Aminotransfer (ALT/SGP 38 U/L (12-78); Albumin, Blood 2.9 g/dL (3.4-5.0); Albumin/Globulin Ratio 0.6 (0.8-1.8); Alk Phos 92 U/L (50-136); Anion Gap 8 mmol/L (6-16); Aspartate Aminotrans (AST/SGOT 26 U/L (12-37); Bilirubin, Total 0.3 mg/dL (0.1-1.0); Blood Urea Nitrogen 11 mg/dL (8-24); Bun/Creatinine Ratio 16.2 (12.0-20.0); CO2, Blood 28 mmol/L (21-32); Calcium, Blood 9.1 mg/dL (8.5-10.1); Chloride, Blood 99 mmol/L (98-108); Creatinine, Blood 0.68 mg/dL (0.40-1.00); Globulin, Blood 4.6 g/dL (2.2-4.0); Glomerular Filtration Rate >60 (60-); Glucose, Blood 128 mg/dL (70-99); Potassium, Blood 4.2 mmol/L (3.5-5.5); Sodium, Blood 135 mmol/L (136-145); Total Protein, Blood 7.5 g/dL (6.4-8.2); Troponin I <0.015 ng/mL (0.000-0.040)
[2021-06-27 03:14] LABS: Influenza A, PCR NEGATIVE (NEGATIVE); Influenza B, PCR NEGATIVE (NEGATIVE); Resp Syncytial Virus, PCR NEGATIVE (NEGATIVE)
[2021-06-27 03:32] LABS: SARS-Cov-2 (COVID-19) PCR, MMC POSITIVE (NEGATIVE)
[2021-06-27 05:29] LABS: Hemoglobin 11.2 g/dL (11.5-16.0); Mean Corpuscular HGB 26.2 pg (26.0-34.0); Mean Corpuscular HGB Conc 31.1 g/dL (31.5-36.5); Mean Corpuscular Volume 84 fL (80-100); Mean Platelet Volume 9.9 fL (9.1-12.4); Platelet Count 336 K/mm3 (150-400); RDW Coefficient Variation 13.4 % (11.7-14.2); RDW Standard Deviation 41.2 fL (35.1-46.3); Red Blood Cell Count 4.27 M/mm3 (3.80-5.20); White Blood Cell Count 8.23 K/mm3 (4.00-11.30)
[2021-06-27 06:09] LABS: Anion Gap 6 mmol/L (6-16); Blood Urea Nitrogen 9 mg/dL (8-24); Bun/Creatinine Ratio 12.7 (12.0-20.0); CO2, Blood 29 mmol/L (21-32); Calcium, Blood 8.9 mg/dL (8.5-10.1); Chloride, Blood 100 mmol/L (98-108); Creatinine, Blood 0.71 mg/dL (0.40-1.00); Glomerular Filtration Rate >60 (60-); Glucose, Blood 130 mg/dL (70-99); Potassium, Blood 4.4 mmol/L (3.5-5.5); Sodium, Blood 135 mmol/L (136-145)
--- NOTE | 2021-06-27 18:34 | NUR ---
SHIFT SUMMARY: ASSUMED CARE OF PT UPON HER ARRIVAL FROM ED AT 1329. A&O X 3, PLEASANT, BUT VERY WEAK BLE. LLE ERYTHEMATOUS WITH FLAKY SKIN; PT SAYS SHE CANNOT WASH THAT PART OF HER BODY ("IT'S TOO FAR AWAY"). HAS UNKNOWN DEGREE OF BLINDNESS, IS [place]. O2 @ 2 L/MIN NC, IS TACHYPNEIC AND HAS PEREZ, BREATH SOUNDS WITH SCATTERED EXP WHEEZES, NO COUGH NOTED. WORKED WITH PT/OT. DENIES PAIN. USES W/C AT HOME.
[2021-06-28 07:44] LABS: Hematocrit 39.9 % (33.0-51.0); Hemoglobin 12.3 g/dL (11.5-16.0); Mean Corpuscular HGB 26.2 pg (26.0-34.0); Mean Corpuscular HGB Conc 30.8 g/dL (31.5-36.5); Mean Corpuscular Volume 85 fL (80-100); Mean Platelet Volume 9.9 fL (9.1-12.4); Platelet Count 397 K/mm3 (150-400); RDW Coefficient Variation 13.4 % (11.7-14.2); RDW Standard Deviation 41.8 fL (35.1-46.3); White Blood Cell Count 11.28 K/mm3 (4.00-11.30)
[2021-06-28 08:04] LABS: Anion Gap 8 mmol/L (6-16); Blood Urea Nitrogen 15 mg/dL (8-24); Bun/Creatinine Ratio 20.1 (12.0-20.0); CO2, Blood 29 mmol/L (21-32); Calcium, Blood 9.2 mg/dL (8.5-10.1); Chloride, Blood 98 mmol/L (98-108); Creatinine, Blood 0.75 mg/dL (0.40-1.00); Glomerular Filtration Rate >60 (60-); Glucose, Blood 167 mg/dL (70-99); Potassium, Blood 3.9 mmol/L (3.5-5.5); Sodium, Blood 135 mmol/L (136-145)
[2021-06-28 08:13] LABS: Base Excess Venous 5.1 mmol/L; Bicarbonate Venous 28.2 mmol/L (24.0-30.0); PCO2 Venous 48.2 mmHg (38-42); PO2 Venous 118 mmHg (38-42)
--- NOTE | 2021-06-28 11:10 | NUR ---
1030: POST VOID BLADDER SCAN RESULT-13 MLS.
--- NOTE | 2021-06-28 17:56 | NUR ---
SHIFT SUMMARY: PT A/0 X 3, ONE PERSON ASSIST TO CHAIR/BSC. VERY PLEASANT AND COOPERATIVE. PT TITRATED DOWN THROUGHOUT THE DAY ON OXYGEN. SHE WAS PLACED ON 11 LPM WHILE SLEEPING VIA HIGH FLOW. TODAY SHE WAS TITRATED DOWN TO 4 LPM VIA REGULAR FLOW NC. O2 SATS HAVE REMAINED 97-98% THROUGHOUT THE DAY. SHE WAS SATING AT 100% AFTER GETTING UP TO CHAIR AT 8% ON HIGH FLOW. PT HAD FEVER THIS AM BUT HAS REMAINED AFEBRILE THROUGHOUT THE REST OF THE DAY. VITALS IMPROVED. IV SITE ON VERONICA WAS RED AND SWOLLEN ON ASSESSMENT AND REMOVED THIS MORNING.NO OTHER ACUTE CHANGES OR CONCERNS.
[2021-06-29 04:45] LABS: Hematocrit 36.2 % (33.0-51.0); Hemoglobin 11.3 g/dL (11.5-16.0); Mean Corpuscular HGB 26.7 pg (26.0-34.0); Mean Corpuscular HGB Conc 31.2 g/dL (31.5-36.5); Mean Corpuscular Volume 86 fL (80-100); Mean Platelet Volume 9.8 fL (9.1-12.4); Platelet Count 347 K/mm3 (150-400); RDW Coefficient Variation 13.7 % (11.7-14.2); RDW Standard Deviation 42.9 fL (35.1-46.3); Red Blood Cell Count 4.23 M/mm3 (3.80-5.20); White Blood Cell Count 7.73 K/mm3 (4.00-11.30)
[2021-06-29 05:38] LABS: Anion Gap 8 mmol/L (6-16); Blood Urea Nitrogen 23 mg/dL (8-24); Bun/Creatinine Ratio 25.8 (12.0-20.0); CO2, Blood 29 mmol/L (21-32); Chloride, Blood 101 mmol/L (98-108); Creatinine, Blood 0.89 mg/dL (0.40-1.00); Glomerular Filtration Rate >60 (60-); Glucose, Blood 103 mg/dL (70-99); Potassium, Blood 4.5 mmol/L (3.5-5.5); Sodium, Blood 138 mmol/L (136-145)
--- NOTE | 2021-06-29 06:24 | NUR ---
VSS. PT REMAINED AFEBRILE THROUGHOUT THIS SHIFT. SHE HAS VOIDED WITHOUT ANY ISSUES. SINUS ON TELE WITH PAC'S @ 70. 4LPM NC. AUDIBLE WHEEZES. SOB WITH ACTIVITY.NO C/O OF PAIN. AOX4. PT HAD TO BE REMINDED TO CALL FOR ASSISTANCE TO BSC.BED IN LOW POSITION WITH ALARM ON. CALL LIGHT IN REACH.
--- NOTE | 2021-06-29 18:18 | NUR ---
SHIFT SUMMARY: PT A/O X 4 STANDBY ASSIST TO CHAIR/BSC. PT HAD TWO LARGE BM'S TODAY. PT HAS BEEN TITRATED OFF OF O2 AT THIS TIME. O2 REMOVED AT DINNER AND SATS RANGING BETWEEN 91%-94%. MILD NON PRODUCTIVE COUGH. NO ACUTE CHANGES AT THIS TIME. PT EATING AND DRINKING FLUIDS WELL.
--- NOTE | 2021-06-30 03:00 | NUR ---
SHIFT SUMMARY PT AWAKE MUCH OF THE NIGHT. UP FREQUENTLY TO THE BSC, HAVING MANY LOOSE BOWEL MOVEMENTS THIS EVENING. PAIN AND SMALL AMOUNT OF RECTAL BLEEDING WITH WIPING RELATED TO HEMORRHOIDS AND FREQUENT WIPING. CREAM APPLIED FOR COMFORT. PT VOIDING WELL. PT WITH SOME SOB WITH EXERTION. HAVING DIFFICULTY WITH CATCHING HER BREATH AFTER MULTIPLE TIMES OF GETTING UP TO THE BSC. PT PLACED ON 2 L VIA NC FOR SOB. O2 SATS REMAINED ABOVE 90 EVEN WITH SOB. VITAL SIGNS STABLE. WILL CONTINUE TO MONITOR.
--- NOTE | 2021-06-30 06:13 | NUR ---
AT APPROX 0430 RACKING MACHINE OPERATOR NOTIFIED THIS RN OF PT'S VITAL SIGNS. BLOOD PRESSURE ELEVATED, FEBRILE, AND HIGH RESPIRATIONS. WHILE IN THE ROOM GIVING PT TYLENOL AND APRESOLINE PT BECAME INCREASINGLY ANXIOUS. RESPIRATIONS BECOMING MORE LABORED. ENCOURAGED PT TO DEEP BREATH WITH NO IMPROVEMENT. NOTIFIED DR. SMITH WITH A NEW ORDER FOR 1 MG IV ATIVAN X 1. ATIVAN GIVEN WITH LITTLE IMPROVEMENT. SCHEDULED CLONAZEPAM GIVEN EARLY. LITTLE IMPROVEMENT FOLLOWING BOTH MEDICATIONS. NOTIFIED DR. SMITH AGAIN. RESPIRATIONS AT THIS TIME WERE IN THE 30'S TO 40'S. BREATHING VERY LABORED. RT IN TO GIVE BREATHING TX. CONSULTED WITH RT WHO RECOMMENDED BIPAP. PT UNLIKELY TO KEEP BIPAP ON. LIKELY TO NEED TO BE SEDATED OR RESTRAINED TO ALLOW MASK. SPOKE WITH DR. SMITH WHO ORDERED TO TRANSFER PT TO ICU AND THAT HE WOULD SEE THE PT DOWN THERE. REPORT GIVEN TO NATURAL SCIENCES MANAGERJACKI HOGUE. PT TRANSFERED WITH PARTS SPECIALIST AND RACKING MACHINE OPERATOR DOWN TO ICU. UPON ASSESSMENT PT WAS FOUND TO BE IN RESPIRATORY DISTRESS. RESPIRATIONS IN THE 30'S TO 40'S. BREATHING VERY LABORED.
--- NOTE | 2021-06-30 06:20 | NUR ---
ARRIVAL ON UNIT PT ARRIVED ON UNIT ON 5L NC SATING 92% W/ RESPIRATIONS OF 30-40'S. HR IS 120-130'S AND MAP IS RUNNING BTW 55-65. PT PLACED ON BIPAP AND SAMUEL PLACED. 18G IV PLACED IN LEFT AC. TEMP SAMUEL SHOWS A 100.0 TEMP. PT IS LETHARGIC BUT AROUSABLE AND ALERT. SHE DENIES PAIN AT THIS TIME. DR. SMITH AT BEDSIDE AND ORDERED NS BOLUS FOR BP. ANOTHER RN UPDATED PT'S DAUGHTER TO UPGRADE TO ICU. BEDSIDE REPORT GIVEN TO AM RN.
[2021-06-30 06:25] LABS: BASOPHILS ABSOLUTE AUTO 0.02 K/mm3 (0.00-0.23); BASOPHILS PERCENT AUTO 0 % (0-2); EOSINOPHILS ABSOLUTE AUTO 0.01 K/mm3 (0.00-0.68); EOSINOPHILS PERCENT AUTO 0 % (0-6); Hematocrit 37.8 % (33.0-51.0); Hemoglobin 11.9 g/dL (11.5-16.0); IMMATURE GRAN ABSOLUTE AUTO 0.06 K/mm3 (0.00-0.10); IMMATURE GRAN PERCENT AUTO 1 % (0-1); LYMPHOCYTES ABSOLUTE AUTO 1.66 K/mm3 (0.84-5.20); LYMPHOCYTES PERCENT AUTO 14 % (21-46); MONOCYTES PERCENT AUTO 3 % (4-13); Mean Corpuscular HGB 26.4 pg (26.0-34.0); Mean Corpuscular HGB Conc 31.5 g/dL (31.5-36.5); Mean Corpuscular Volume 84 fL (80-100); NEUTROPHILS ABSOLUTE AUTO 9.75 K/mm3 (1.96-9.15); NEUTROPHILS PERCENT AUTO 82 % (41-73); Platelet Count 379 K/mm3 (150-400); RDW Coefficient Variation 13.8 % (11.7-14.2); RDW Standard Deviation 42.5 fL (35.1-46.3)
[2021-06-30 06:32] LABS: Anion Gap 10 mmol/L (6-16); Blood Urea Nitrogen 22 mg/dL (8-24); Bun/Creatinine Ratio 28.8 (12.0-20.0); CO2, Blood 25 mmol/L (21-32); Calcium, Blood 8.7 mg/dL (8.5-10.1); Chloride, Blood 101 mmol/L (98-108); Creatinine, Blood 0.76 mg/dL (0.40-1.00); Glomerular Filtration Rate >60 (60-); Glucose, Blood 196 mg/dL (70-99); Potassium, Blood 3.5 mmol/L (3.5-5.5); Sodium, Blood 136 mmol/L (136-145)
--- NOTE | 2021-06-30 06:39 | NUR ---
UPDATE: FAMILY UPDATED. PT'S DAUGHTER, JOEY, CALLED & UPDATED ON PT's PROGRESSION T/O THE NIGHT & TRANSFER TO ICU D/T RESP DISTRESS. INFORMED HER THE AM RN WILL CALL THEY KNOW MORE & HER CASE PROGRESSES. FAMILY VERB UNDERSTANDING. OPPORTUNITY PROVIDED FOR QUESTIONS; DENIES ANY UNMET NEEDS. PRIMARY RN & CHARGE UPDATED.
[2021-06-30 07:18] LABS: Source, Urine Catheter
--- NOTE | 2021-06-30 07:19 | NUR ---
ASSUMED CARE BEDSIDE REPORT RECIEVED. PT IS RESTING IN BED ON BIPAP 14/10, FIO2 60%. PT SPO2 >94%. PT IS LETHARGIC, BUT DOES AWAKEN TO VERBAL STIMULI AND ANSWERS QUESTIONS APPROPRIATELY. PT IS HYPOTENSIVE WITH SBP 70-80'S. NS BOLUS INFUSING AT THIS TIME. DISCUSSED LINE PLACEMENT AND PRESSORS WITH DR SMITH IF NEEDED. SAMUEL IN PLACE WITH CLEAR YELLOW OUTPUT NOTED. WILL CONTINUE TO MONITOR.
[2021-06-30 07:49] LABS: Appearance, Urine Clear (Clear); Bilirubin, Urine Neg (Neg); Blood, Urine 1+ (Neg); Color, Urine Yellow (P-Yellow); Glucose Qualitative, Urine Neg (Neg); Ketones, Urine Neg (Neg); Leukocyte Esterase, Urine Neg (Neg); Nitrite, Urine Neg (Neg); Protein, Urine 2+ (Neg); Urobilinogen, Urine NORM (Normal)
[2021-06-30 08:08] LABS: Bacteria Rare /hpf; Red Blood Cells, Urine 0-2 /hpf (0-2); Squamous Epithelial Cells Rare /hpf (Few); Transitional Epithelial Cells Rare /hpf (0-Rare); White Blood Cells, Urine 0-2 /hpf (0-5)
--- NOTE | 2021-06-30 14:21 | NUR ---
CONFUSION PT BECAME ACUTELY CONFUSED AND AGITATED. PT PULLED OFF NC, REMOVED IV, AND PULLING AT SAMUEL, ATTEMTING TO CLIMB OVER BED RAIL. PT UNABLE TO BE REDIRECTED. DR DHILLON AND DR RIVERA NOTIFIED. PT RECIEVED ONE TIME DOSE OF ATIVAN IV. PRECEDEX GTT STARTED. POWERGLIDE PLACED TO VERONICA. PT NOW IN SBW RESTRAINTS DUE TO CONTINUED ATTEMPTS TO PULL OUT LINES/TUBES. VITAL SIGNS REMAIN STABLE. WILL CONTINUE TO MONITOR.
[2021-06-30 15:15] LABS: PCO2 Arterial 48.3 mmHg (35-45); PO2 Arterial 90.8 mmHg (80-100); pH Blood Arterial 7.39 (7.35-7.45)
--- NOTE | 2021-06-30 18:26 | NUR ---
SHIFT SUMMARY PT RESTING IN BED QUIETLY AT THIS TIME. PT SEDATED WITH PRECEDEX AT 0.5 MCG/KG/HR. SBW RESTRAINTS REMAIN IN PLACE. VITAL SIGNS STABLE. PT ON 5L O2 NC. POWERGLIDE TO VERONICA INFUSING. SAMUEL TEMP PROBE REMAINS IN PLACE WITH CLEAR YELLOW OUTPUT NOTED. SEE PREVIOUS NOTES FOR MORE SHIFT INFO. WILL CONTINUE TO MONITOR AND REPORT OFF TO ONCOMING RN.
--- NOTE | 2021-06-30 19:00 | NUR ---
ASSUME CARE: PT LYING IN BED W/ EYES CLOSED ON 3L NC AND SATING 97%. HR IS IN HIGH 50-60'S AND BP WNL. SHE IS AROUSABLE AND ALERT TO SELF, FAMILY, AND YEAR BUT CONFUSED TO PLACE AND SITUATION. PRECEDEX INFUSING AT 0.3MCG/KG/HR. SAMUEL IN PLACE DRAINING YELLOW URINE TO GRAVITY. SHE IS AFEBRILE AND DENIES PAIN. SKIN IS COOL AND DRY W/ CELLULITIS NOTED TO BLE. SEE SHIFT ASSESSMENT FOR DETAILS.
[2021-07-01 03:31] LABS: Hematocrit 35.5 % (33.0-51.0); Mean Corpuscular HGB 26.6 pg (26.0-34.0); Mean Corpuscular Volume 86 fL (80-100); Mean Platelet Volume 10.1 fL (9.1-12.4); Platelet Count 317 K/mm3 (150-400); RDW Coefficient Variation 14.1 % (11.7-14.2); RDW Standard Deviation 44.4 fL (35.1-46.3); Red Blood Cell Count 4.14 M/mm3 (3.80-5.20); White Blood Cell Count 6.93 K/mm3 (4.00-11.30)
[2021-07-01 03:45] LABS: Anion Gap 4 mmol/L (6-16); Blood Urea Nitrogen 18 mg/dL (8-24); Bun/Creatinine Ratio 25.2 (12.0-20.0); CO2, Blood 31 mmol/L (21-32); Calcium, Blood 8.4 mg/dL (8.5-10.1); Chloride, Blood 107 mmol/L (98-108); Creatinine, Blood 0.71 mg/dL (0.40-1.00); Glomerular Filtration Rate >60 (60-); Glucose, Blood 103 mg/dL (70-99); Potassium, Blood 4.3 mmol/L (3.5-5.5); Sodium, Blood 142 mmol/L (136-145)
--- NOTE | 2021-07-01 06:32 | NUR ---
SHIFT SUMMARY: PT LYING IN BED RESTING QUIETYLY IN SWB RESTRAINTS. HER MENTATION IS LABILE SHE IS SOMETIMES LUCID AND ALERT AND AT OTHER TIMES IS CONFUSED AND DELIRIOUS. ON 3L NC SHE IS SATING >95%. HR HAS BEEN BTW 50-70'S AND BP HAS BEEN WNL T/O THE SHIFT. TMAX IS 99.7. NO BM THIS SHIFT AND SHE DENIES PAIN. SAMUEL REMAINS IN PLACE DRAINING YELLOW URINE TO GRAVITY. PRECEDEX INFUSING AT 0.4MCG/KG/HR. WILL REPORT TO ONCOMING RN WHEN AVAILABLE.
--- NOTE | 2021-07-01 07:00 | NUR ---
ASSUME CARE: I have assumed care of pt. At this time she is resting in bed, restrained, and hollering for staff to assist her with water.
--- NOTE | 2021-07-01 13:25 | NUR ---
UPDATE: Hospitalist answering service called to notify provider of fever. Pt declining to take tylenol and requests either aspirin or ibuprofen for her fever. Pt also requestion nasal decongestant spray. Will notify provider when he/she calls back.
--- NOTE | 2021-07-01 16:56 | NUR ---
UPDATE: This RN called resident again to notify regarding pts temperature and fluid balance. Hold on lasix for now per resident. See new orders for antipyretics.
--- NOTE | 2021-07-01 18:44 | NUR ---
END OF SHIFT SUMMARY: Restraints discontinued this morning. Pt up in chair for most of the day. She has been pleasent and A/O to person, place, situation, and year. Precedex titrated off. Pt transferred to medical status. BM today. Pt eating and drinking well.
--- NOTE | 2021-07-02 06:08 | NUR ---
PT REQUIRING 3L O2 NC THROUGHOUT SHIFT. DYSNEA WITH EXERTION AND LOWERING HEAD OF BED. INTERMITTENT COUGH RESULTING IN STRESS INCONTINENCE OF BOWELS. PAINFUL HEMMEROIDS NOTED, WILL ASK DAY TEAM TO DISCUSS POTENTIAL FOR CORTISOL CREAM. HTM MANAGED WITH IV HYDRALAZINE THROUGHOUT SHIFT.
--- NOTE | 2021-07-02 07:30 | NUR ---
ASSUMED CARE PATIENT LYING IN BED WITH EYES OPEN, TALKING WITH NO ONE ELSE IN THE ROOM. PATIENT DOES NOT TRACK D/T BLINDNESS. A&O X 3-BELIEVES IT IS 2002, BUT REMEMBERS THAT YESTERDAY WAS HER BIRTHDAY; ANSWERS QUESTIONS APPROPRIATELY AND MAKES NEEDS KNOWN TO STAFF. 1 PERSON ASSIST W/ GAIT BELT TO KEESHA. NS TKO INF INTO PICC IN [facility]. NC IN PLACE W/ 3LPM AND SPO2 MID TO HIGH 90'S. BP STABLE W/ SBP IN 130'S AND MAPS GREATER THAN 65. PATIENT IS IN AFIB W/ CONTROLLED RATE IN 90'S.
--- NOTE | 2021-07-02 17:52 | NUR ---
SHIFT SUMMARY PATIENT WAS UP IN CHAIR MOST OF THE SHIFT. HYDRALAZINE 20MG IV GIVEN X 1 FOR HYPERTENSION OF . SAMUEL CATHETER REMOVED. PATIENT USED WALKER WITH NURSE TODAY TO WALK IN PLACE FOR EXERCISE SUCCESSFULLY. PATIENT IS STILL ON 3LPM VIA NC W/ SPO2 MID TO HIGH 90'S. NO OTHER MAJOR CHANGES DURING SHIFT.
--- NOTE | 2021-07-02 20:38 | NUR ---
ASSUMPTION OF CARE RECEIVED REPORT FROM ZENIA ECHEVERRIA AT 1905. ASSUMED CARE OF PATIENT. PATIENT ASSISTED BACK INTO BED DURING REPORT BY TWO DAY SHIFT RN. HOB GREAT THAN 30 DEGREES. NO S/S OF DISTRESS. 3L 02 VIA WI WITH HUMIDIFIER IN PLACE. CALL LIGHT IN REACH. PATIENT EDUCATED HOW TO USE CALL LIGHT AND DEMONSTRATED UNDERSTANDING. INCONTINENT OF URINE AT 1930, USED CALL LIGHT TO ASK FOR HELP. CLEAN LINENS PROVIDED AND UNDERWEAR WITH PAD PLACED. PM MEDICATIONS GIVEN WITH SIPS OF WATER, TOLERATED WELL. WILL REVIEW ORDERS AND TREAT PRESCRIBED.
[2021-07-03 03:57] LABS: BASOPHILS ABSOLUTE AUTO 0.01 K/mm3 (0.00-0.23); BASOPHILS PERCENT AUTO 0 % (0-2); EOSINOPHILS PERCENT AUTO 0 % (0-6); Hematocrit 36.9 % (33.0-51.0); Hemoglobin 11.7 g/dL (11.5-16.0); IMMATURE GRAN ABSOLUTE AUTO 0.08 K/mm3 (0.00-0.10); IMMATURE GRAN PERCENT AUTO 1 % (0-1); LYMPHOCYTES PERCENT AUTO 17 % (21-46); MONOCYTES ABSOLUTE AUTO 0.53 K/mm3 (0.16-1.47); MONOCYTES PERCENT AUTO 5 % (4-13); Mean Corpuscular HGB 25.9 pg (26.0-34.0); Mean Corpuscular HGB Conc 31.7 g/dL (31.5-36.5); Mean Corpuscular Volume 82 fL (80-100); Mean Platelet Volume 9.9 fL (9.1-12.4); NEUTROPHILS ABSOLUTE AUTO 8.87 K/mm3 (1.96-9.15); NEUTROPHILS PERCENT AUTO 78 % (41-73); Platelet Count 393 K/mm3 (150-400); RDW Coefficient Variation 14.1 % (11.7-14.2); RDW Standard Deviation 42.2 fL (35.1-46.3); Red Blood Cell Count 4.51 M/mm3 (3.80-5.20); White Blood Cell Count 11.39 K/mm3 (4.00-11.30)
[2021-07-03 04:15] LABS: Anion Gap 7 mmol/L (6-16); Blood Urea Nitrogen 16 mg/dL (8-24); Bun/Creatinine Ratio 22.5 (12.0-20.0); CO2, Blood 27 mmol/L (21-32); Calcium, Blood 8.9 mg/dL (8.5-10.1); Chloride, Blood 106 mmol/L (98-108); Creatinine, Blood 0.71 mg/dL (0.40-1.00); Glomerular Filtration Rate >60 (60-); Glucose, Blood 120 mg/dL (70-99); Potassium, Blood 3.3 mmol/L (3.5-5.5); Sodium, Blood 140 mmol/L (136-145)
--- NOTE | 2021-07-03 04:36 | NUR ---
PATIENT TRANSFER REPORT GIVEN TO ELVIS ECHEVERRIA ON MEDICAL FLOOR. BLOOD PRESSURE RECHECKED AFTER HYDRALAZINE IV GIVEN. PATIENT TO TRANSFER TO ROOM 329.
--- NOTE | 2021-07-03 06:39 | NUR ---
SHIFT SUMMARY PATIENT A/O, ANXIOUS AT TIMES WHEN SHE FEELS SHE NEEDS TO URINATE. STANDBY ASSIST WITH WALKER TO BEDSIDE COMMODE. 3L 02 VIA NC REMAINS WITH 02 SATS ABOVE 95%. HYPERTENSIVE REQUIRING HYDRALAZINE ONE TIME. ATTEMPTED TO TRANSFER PATIENT TO MEDICAL FLOOR, DUE TO TB TEST PENDING DECISION WAS MADE TO KEEP PATIENT IN ICU FOR AIRBORNE ISOLATION NEEDS. CONTINUING TO MONITOR, WILL REPORT TO ONCOMING RN.
--- NOTE | 2021-07-03 07:30 | NUR ---
ASSUMED CARE PATIENT LYING IN BED W/ EYES OPEN. GREETS STAFF UPON ENTERING ROOM. 3LPM VIA NC IN PLACE. NO FAMILY IS AT BEDSIDE. NS TKO INF INTO POWERGLIDE IN VERONICA. SPUTUM CULTURE COLLECTION PENDING. SHIFT REPORT COMPLETED W/ JACKI KNUTSON.
--- NOTE | 2021-07-03 14:33 | NUR ---
AGITATION PATIENT BECAME RESTLESS IN BED, TWISTING HEAD SIDE TO SIDE, PULLING ON RESTRAINTS. SPO2 DECREASED TO 85% AND RR INCREASED TO MID 30'S. DILAUDID 1MG IVP ADMINISTERED. PATIENT RESPONDED WELL, RESTING W/ EYES CLOSED, NOT PULLING ON ETT OR RESTRAINTS, AND SPO2 @ 91% W/ RR 16.
--- NOTE | 2021-07-03 18:10 | NUR ---
SHIFT SUMMARY PATIENT HAD ONE EPISODE OF HYPERTENSION W/ MAP OF 120 AND SBP 170'S. HYDRALAZINE 20MG IVP ADMINISTERED. PATIENT FED SELF FOR ALL 3 MEALS. ABLE TO MAKE NEEDS KNOWN TO STAFF W/ APPROPRIATE USE OF CALL LIGHT. USES GAIT BELT AND WALKER TO TRANSFER FROM BED TO CHAIR AND CHAIR TO COMMODE. PATIENT PARTICIPATED IN PHYSICAL THERAPY TODAY AND UPDATE GIVEN TO DAUGHTER, JOEY. STILL ON 3LPM O2 VIA NC W/ SPO2 MID TO HIGH 90'S.
--- NOTE | 2021-07-03 20:42 | NUR ---
ASSUMPTION OF CARE RECEIVED REPORT FROM ZENIA ECHEVERRIA AT 1905, ASSUMED CARE OF PATIENT. PATIENT A/O, SITTING UP IN BED. DENIED DISCOMFORTS. O2 AT 5L VIA NC, DECREASED TO 3L NC. PATIENT TOLERATED WELL. 02 SATS MAINTAINED ABOVE 90%. PATIENT STATED SHE FEELS SO MUCH BETTER, THAT THE TREATMENTS WE ARE USING MUST BE WORKING. HYPERTENSION NOTED, TELEMETRY PLACED AND METOPROLOL GIVEN PRN ORDERED. BLOOD PRESSURE IMPROVED CHARTED. ORDERS REVIEWED, WILL TREAT PRESCRIBED.
--- NOTE | 2021-07-04 01:03 | NUR ---
TRANSFER REPORT GIVEN TO ACCEPTING RN. PATIENT TRANSFERRED TO MEDICAL FLOOR VIA BED WITH STAFF MEMBER ASSIST.
--- NOTE | 2021-07-04 05:56 | NUR ---
SHIFT SUMMARY: RONLAD WAS TRANSFERRED TO THIS FLOOR AROUND 0105. WITH 2 PERSON ASSIST TRANSFERRED TO BED. SHE GOT VERY WEAK AND SOB. HAD TO TURN HER UP TO 7 LITERS FOR HER TO RECOVER, NOW BACK DOWN TO 4LITERS. VS HAVE BEEN WNL. SHE HAS A CONSTANT CONTINUED WHEEZE THAT SHE STATES KEEPS HER AWAKE AND UNABLE TO SLEEP. ATTEMPTED ALL THE ALTERNATIVE METHODS TO ASSIST IN THIS, WITH NO LUCK TONIGHT. HAD 1 BREATHING TX SINCE SHE GOT HER TO THE FLOOR. NO OTHER CHANGES TO REPORT. WILL REPORT TO ONCOMING RN.
[2021-07-04 13:31] LABS: Source, Urine Catheter
[2021-07-04 13:35] LABS: Appearance, Urine Clear (Clear); Bilirubin, Urine Neg (Neg); Blood, Urine Neg (Neg); Color, Urine Yellow (P-Yellow); Glucose Qualitative, Urine Neg (Neg); Ketones, Urine Neg (Neg); Leukocyte Esterase, Urine Neg (Neg); Nitrite, Urine Neg (Neg); Protein, Urine Neg (Neg); Urobilinogen, Urine NORM (Normal); pH, Urine 6.5 (5.0-8.0)
--- NOTE | 2021-07-04 17:54 | NUR ---
PT IS A/OX3, PLEASANT AND COOPERATIVE. THE PT IS UP WITH ASSIST TO THE BSC BUT VERY FEARFULL AND ANXIOUS WITH THE TRANSFERS. THE PT HAD SOME URINE RETENTION TODAY A STRAIGHT CATH WAS ORDERED AND 800CC DRAINED A URINE SAMPLE WAS COLLECTED AND SENT. THE PT APPEARS TO BE BREATHING EASILY AT REST ON RA. THE PT DENIED ANY PAIN. CALL LIGHT IN REACH. WILL CONTINUE TO MONITOR AND ASSESS FOR CHANGES
--- NOTE | 2021-07-05 03:13 | NUR ---
PATIENT SEEMED TO BE DING WELL THIS SHIFT UNTIL SHE WOKE UP IN THE MIDDLE OF THE NIGHT FEELING THOUGH SHE COULD NOT BREATH. SHE ATTEMPTED TO CALL FOR STAFF ASSISTANCE BUT FAILED TO LOCATE HER CALL LIGHT WHICH WAS POSITIONED ON HER ABDOMEN. SHE WAS TRYING TO CALL OUT FOR HELP HOWEVER WAS NOT HEARD D/T THE DOUBLE DOORS BETWEEN STAFF AND HER R/T INSOLATION/NEGATIVE PRESSURE ORDERS. PATIENT IS ON CONT BIOX AND WAS SAT'ING FINE HE MONITOR IS SITTING OUTSIDE HER ROOM, HOWEVER SHE SEEMED TO WORK HERSELF INTO A PANIC. BP AND HR ELEVATED AND PATIENT WAS MEDICATED WITH PRN IV METOPROLOL WHICH SEEMS TO BE SLOWLY BRINGING BOTH LEVELS DOWN. DR BUCKNER ALSO INFORMED OF PATIENTS ANXIETY LEVEL AND GAVE ORDERS FOR A ONE TIME DOSE OF KLONOPIN. AWAITING FOR PHARMACY VERIFICATION TO ADMINISTER. i HAVE REMAINED AT PATIENT BEDSIDE WHILE WAITING. ATTEMPTED TO WEAN PATIENT DOWN TO 2L O2 NC AND SHE WAS DOING WELL, MAINTAING IN THE HIGH 90s UNTIL HER PANIC ATTACK. i HAVE SINCE BUMPED HER BACK UP TO 4L 02 NC. PATIENT IS STILL VERY ANXIOUS. AWAITING ORDER KLONOPIN TO ADMINISTER.
[2021-07-05 08:12] LABS: BASOPHILS ABSOLUTE AUTO 0.03 K/mm3 (0.00-0.23); BASOPHILS PERCENT AUTO 0 % (0-2); EOSINOPHILS ABSOLUTE AUTO 0.01 K/mm3 (0.00-0.68); EOSINOPHILS PERCENT AUTO 0 % (0-6); Hematocrit 37.7 % (33.0-51.0); Hemoglobin 11.6 g/dL (11.5-16.0); IMMATURE GRAN ABSOLUTE AUTO 0.17 K/mm3 (0.00-0.10); IMMATURE GRAN PERCENT AUTO 1 % (0-1); LYMPHOCYTES ABSOLUTE AUTO 1.33 K/mm3 (0.84-5.20); LYMPHOCYTES PERCENT AUTO 8 % (21-46); MONOCYTES ABSOLUTE AUTO 0.74 K/mm3 (0.16-1.47); MONOCYTES PERCENT AUTO 5 % (4-13); Mean Corpuscular HGB Conc 30.8 g/dL (31.5-36.5); Mean Corpuscular Volume 84 fL (80-100); Mean Platelet Volume 9.8 fL (9.1-12.4); NEUTROPHILS PERCENT AUTO 86 % (41-73); Platelet Count 442 K/mm3 (150-400); RDW Coefficient Variation 14.3 % (11.7-14.2); RDW Standard Deviation 43.8 fL (35.1-46.3); Red Blood Cell Count 4.47 M/mm3 (3.80-5.20); White Blood Cell Count 16.38 K/mm3 (4.00-11.30)
[2021-07-05 08:23] LABS: Anion Gap 8 mmol/L (6-16); Blood Urea Nitrogen 16 mg/dL (8-24); Bun/Creatinine Ratio 26.5 (12.0-20.0); CO2, Blood 29 mmol/L (21-32); Chloride, Blood 104 mmol/L (98-108); Glomerular Filtration Rate >60 (60-); Glucose, Blood 136 mg/dL (70-99); Potassium, Blood 3.1 mmol/L (3.5-5.5); Sodium, Blood 141 mmol/L (136-145)
--- NOTE | 2021-07-05 08:45 | NUR ---
RE BLOOD PRESSURE: FALSE READING AT 0845
[2021-07-05 14:10] LABS: QUANTIFERON MITOGEN VALUE >10.00 IU/mL (.); QUANTIFERON NIL VALUE 0.01 IU/mL (.); QUANTIFERON TB1 AG VALUE 0.02 IU/mL (.); QUANTIFERON-TB GOLD PLUS Negative (Negative)
--- NOTE | 2021-07-05 14:48 | NUR ---
0700 AT TIME OF SHIFT CHANGE REPORT. PT SUPPOSED TO BE ON ON-REBREATHER. 15 L. SHE PULLING OFF. SATS DROPPING TO MID 70%. AGITATED. CONFUSED. UNABLE TO KEEP ON. UNABLE TO REDIRECT. PLACED IN RESTRAINTS. CALIN ECHEVERRIA CALLED FOR ORDERS. O2 IMPROVED >90%. CALLED DR TO COME SEE PT. CALLED RT TO COME SEE PT. 0730 DR VALERA IN TO SEE AND ASSESS PT. I ALSO ASSESSED PRIOR. LUNGS COARSE, WHEEZY T/O. PT AGITATED. BUT IS SOME BETTER. BP 167/109 P 61, MED PER EMAR. O2 NOW AT 97% ON 15 L NONREBREATHER. 0800 RT IN TO SEE AND ASSESS. NEED DEEP SUCTION PER DR AND RT TO HELP CLEAR LUNGS. ORDERS FOR CHEST XRAY. PT SLOWLY BECOMING LESS AGITATED. DR DHILLON IN AND REMOVED RESTRAINTS. PT RELAXING AND LEAVING O2 PLACED. RT ABLE TO MOVE TO HI FLOW AT 12L. PT IMPROVING.
--- NOTE | 2021-07-05 14:56 | NUR ---
110O RT IN AND ABLE TO TURN PT O2 DOWN TO 6L. SATS >92%. PT MUCH MORE ALERT AND ORIENTED. SUCTION HELPED.
--- NOTE | 2021-07-05 18:24 | NUR ---
PT MUCH IMPROVED T/O DAY. IS HOLDING 94% ON 6L HI FLOW N/C AT THIS TIME. ABLE TO EAT SOME DINNER. COUNTENANCE IMPROVED. TALKING AND PLEASANT . NO C/O PAIN. CONTINUES TO BE OCC INCONT. NO NEW CONCERNS NOTED TODAY.. BED IN LOW POSITION, CALL LITE IN REACH, BED ALARM ON FOR SAFETY
--- NOTE | 2021-07-06 06:14 | NUR ---
SHIFT SUMMARY PATIENT ALERT AND ORIENTED X3. HAS OCCASIONAL CONFUSION. HAD NO COMPLAINTS OF PAIN. IS VERY DYSPNIC EVEN AT REST. O2 TITRATED DOWN TO 5 LITERS O2 VIA HIGH FLOW NASAL CANULA. CALL LIGHT WITHIN REACH. REPORT GIVEN TO ONCOMING RN.
--- NOTE | 2021-07-06 08:00 | NUR ---
PT A/O X3 PLEASANT BUT IN PANIC ATTACK. INC RESP. O2 WELL AT 95%. HELD HAND AND TALKED WITH HER FOR 30+MIN TO CALM DOWN. SLOWLY IMPROVED. SHE REMAINED PANICKEY FOR PROBABLY AN HOUR OR MORE. MED PER EMAR. BP QUITE ELEVATED, BUT SLOWLY CAME DOWN. DR TO ROOM. DISCUSSED WITH DR VALERA, SHOWED THE BP. DISCUSSED THE PANIC. SHE TO REVIEW MEDS TO ADJUST. H/R REG, NO MURMER NOTED. LUNGS COARSE AND WHEEZY, UNABLE TO COUGH WELL TO CLEAR, ON 5L O2 AT THIS TIME. BT X4 LAST BM YEST. VOIDS INCONT. ATTENDS. BED IN LOW POSITION, CALL LITE IN REACH, BED ALARM ON FOR SAFETY
[2021-07-06 10:58] LABS: BASOPHILS ABSOLUTE AUTO 0.02 K/mm3 (0.00-0.23); BASOPHILS PERCENT AUTO 0 % (0-2); EOSINOPHILS PERCENT AUTO 0 % (0-6); Hematocrit 37.2 % (33.0-51.0); Hemoglobin 11.8 g/dL (11.5-16.0); IMMATURE GRAN ABSOLUTE AUTO 0.12 K/mm3 (0.00-0.10); IMMATURE GRAN PERCENT AUTO 1 % (0-1); LYMPHOCYTES ABSOLUTE AUTO 1.12 K/mm3 (0.84-5.20); LYMPHOCYTES PERCENT AUTO 10 % (21-46); MONOCYTES ABSOLUTE AUTO 0.38 K/mm3 (0.16-1.47); MONOCYTES PERCENT AUTO 3 % (4-13); Mean Corpuscular HGB 26.4 pg (26.0-34.0); Mean Corpuscular HGB Conc 31.7 g/dL (31.5-36.5); Mean Corpuscular Volume 83 fL (80-100); Mean Platelet Volume 9.9 fL (9.1-12.4); NEUTROPHILS ABSOLUTE AUTO 10.15 K/mm3 (1.96-9.15); NEUTROPHILS PERCENT AUTO 86 % (41-73); Platelet Count 492 K/mm3 (150-400); RDW Coefficient Variation 14.1 % (11.7-14.2); RDW Standard Deviation 42.2 fL (35.1-46.3); Red Blood Cell Count 4.47 M/mm3 (3.80-5.20); White Blood Cell Count 11.79 K/mm3 (4.00-11.30)
[2021-07-06 11:27] LABS: Alanine Aminotransfer (ALT/SGP 153 U/L (12-78); Albumin, Blood 2.6 g/dL (3.4-5.0); Albumin/Globulin Ratio 0.6 (0.8-1.8); Alk Phos 74 U/L (50-136); Anion Gap 9 mmol/L (6-16); Aspartate Aminotrans (AST/SGOT 89 U/L (12-37); Bilirubin, Total 0.5 mg/dL (0.1-1.0); Blood Urea Nitrogen 19 mg/dL (8-24); Bun/Creatinine Ratio 32.4 (12.0-20.0); CO2, Blood 32 mmol/L (21-32); Calcium, Blood 8.8 mg/dL (8.5-10.1); Chloride, Blood 97 mmol/L (98-108); Creatinine, Blood 0.59 mg/dL (0.40-1.00); Globulin, Blood 4.5 g/dL (2.2-4.0); Glomerular Filtration Rate >60 (60-); Glucose, Blood 222 mg/dL (70-99); Sodium, Blood 138 mmol/L (136-145); Total Protein, Blood 7.1 g/dL (6.4-8.2)
--- NOTE | 2021-07-06 11:51 | NUR ---
PT FAILED SWALLOW EVAL. HAS BEEN PLACED ON NPO ALL FOOD & WATER. CALLED DR. WILL NEED TO ADJUST MEDS AND INSULIN. PEND ORDRES.
--- NOTE | 2021-07-06 18:44 | NUR ---
PT IMPROVED MUCH FROM YESTERDAY. DID HAVE PANIC ATTACK THIS AM. TALKED HER THROUGH, BUT BP CONTINUED HIGH. DOWN SOME. SPOKE TO DRS ABOUT THIS. MED ADJUSTMENTS MADE. PT FAILED SWALLOW TEST AND MADE NPO TODAY. DR OKAYED GIVE PO NECESSARY MEDS. DR DID START 1 PRN ANX MED TODAY. PT PICKED UP THAT FAILED SWALLOW AND NPO AND EXPRESSED CONCERNS MAY NEVER EAT AGAIN. NOT HAPPY WITH THAT. EXPLAINED IS A SET OF STEPS FROM REPEAT SWALLOW, BARIUM, CLINIMIX, TPN, ETC. SEEMS TO ALLEVIATE HER FEARS SOME. DID HAVE ELEVATED BP THIS SAL, MED WITH HYDRAL. CAME DOWN TO 163/60. REQUESTED NITE SHIFT TO MONITOR AND FOLLOW. BED IN LOW POSITION, CALL LITE IN REACH, CALLS APPROP
[2021-07-07 05:23] LABS: BASOPHILS ABSOLUTE AUTO 0.02 K/mm3 (0.00-0.23); BASOPHILS PERCENT AUTO 0 % (0-2); EOSINOPHILS PERCENT AUTO 0 % (0-6); Hematocrit 38.2 % (33.0-51.0); IMMATURE GRAN ABSOLUTE AUTO 0.11 K/mm3 (0.00-0.10); IMMATURE GRAN PERCENT AUTO 1 % (0-1); LYMPHOCYTES ABSOLUTE AUTO 1.28 K/mm3 (0.84-5.20); LYMPHOCYTES PERCENT AUTO 11 % (21-46); MONOCYTES ABSOLUTE AUTO 0.57 K/mm3 (0.16-1.47); MONOCYTES PERCENT AUTO 5 % (4-13); Mean Corpuscular HGB 26.1 pg (26.0-34.0); Mean Corpuscular HGB Conc 31.4 g/dL (31.5-36.5); Mean Corpuscular Volume 83 fL (80-100); Mean Platelet Volume 9.6 fL (9.1-12.4); NEUTROPHILS ABSOLUTE AUTO 9.99 K/mm3 (1.96-9.15); NEUTROPHILS PERCENT AUTO 83 % (41-73); Platelet Count 509 K/mm3 (150-400); RDW Coefficient Variation 14.1 % (11.7-14.2); RDW Standard Deviation 42.4 fL (35.1-46.3); Red Blood Cell Count 4.59 M/mm3 (3.80-5.20); White Blood Cell Count 11.97 K/mm3 (4.00-11.30)
--- NOTE | 2021-07-07 05:55 | NUR ---
SHIFT SUMMARY PATIENT ALERT AND ORIENTED X3. HAD NO COMPLAINTS OF PAIN. IS DYSPNIC ON EXHERTION. O2 TITRATED DOWN TO 3 LITERS VIA NASAL CANULA SATING AT 94%. NO ACUTE ISSUES NOTED OVERNIGHT. CALL LIGHT WITHIN REACH. REPORT GIVEN TO ONCOMING RN.
[2021-07-07 06:05] LABS: Anion Gap 9 mmol/L (6-16); Blood Urea Nitrogen 21 mg/dL (8-24); CO2, Blood 33 mmol/L (21-32); Calcium, Blood 8.9 mg/dL (8.5-10.1); Chloride, Blood 99 mmol/L (98-108); Creatinine, Blood 0.54 mg/dL (0.40-1.00); Glomerular Filtration Rate >60 (60-); Glucose, Blood 171 mg/dL (70-99); Potassium, Blood 3.3 mmol/L (3.5-5.5); Sodium, Blood 141 mmol/L (136-145)
[2021-07-07 11:53] LABS: Vancomycin, Trough 7.4 ug/mL (5.0-10.0)
--- NOTE | 2021-07-07 18:30 | NUR ---
Alert and oriented x3, anxious and restless sometimes. c/o abdomen pain ,advil was given once, it was effective. BP was elevated to 200/96 , hydralazine 10 mg iv was given and it was effective, vital signs trended down to 133/94,continue on 3 L n/c , sp02 at 92% . Continue on ABO therapy for covid/PNA. Call light within. Continue to monitor.
[2021-07-08 06:15] LABS: BASOPHILS ABSOLUTE AUTO 0.03 K/mm3 (0.00-0.23); BASOPHILS PERCENT AUTO 0 % (0-2); EOSINOPHILS PERCENT AUTO 0 % (0-6); Hematocrit 37.8 % (33.0-51.0); Hemoglobin 12.1 g/dL (11.5-16.0); IMMATURE GRAN ABSOLUTE AUTO 0.23 K/mm3 (0.00-0.10); IMMATURE GRAN PERCENT AUTO 1 % (0-1); LYMPHOCYTES ABSOLUTE AUTO 1.23 K/mm3 (0.84-5.20); LYMPHOCYTES PERCENT AUTO 7 % (21-46); MONOCYTES ABSOLUTE AUTO 0.88 K/mm3 (0.16-1.47); MONOCYTES PERCENT AUTO 5 % (4-13); Mean Corpuscular HGB 26.3 pg (26.0-34.0); Mean Corpuscular Volume 82 fL (80-100); Mean Platelet Volume 9.9 fL (9.1-12.4); NEUTROPHILS ABSOLUTE AUTO 15.82 K/mm3 (1.96-9.15); NEUTROPHILS PERCENT AUTO 87 % (41-73); NRBC ABSOLUTE 0.03 K/mm3 (0.00-0.02); NRBC Auto 0.2 /100 WBC (0.0-0.2); Platelet Count 551 K/mm3 (150-400); RDW Coefficient Variation 14.2 % (11.7-14.2); RDW Standard Deviation 41.3 fL (35.1-46.3); White Blood Cell Count 18.19 K/mm3 (4.00-11.30)
--- NOTE | 2021-07-08 06:17 | NUR ---
SHIFT SUMMARY PATIENT ALERT AND ORIENTED X3. HAD NO COMPLAINTS OF PAIN. IS DYSPNIC ON EXHERTION. O2 TITRATED DOWN TO 1 LITER VIA NASAL CANULA. NO ACUTE ISSUES NOTED OVERNIGHT. CALL LIGHT WITHIN REACH. REPORT GIVEN TO ONCOMING RN.
[2021-07-08 06:31] LABS: Anion Gap 10 mmol/L (6-16); Blood Urea Nitrogen 29 mg/dL (8-24); Bun/Creatinine Ratio 46.5 (12.0-20.0); CO2, Blood 32 mmol/L (21-32); Calcium, Blood 9.2 mg/dL (8.5-10.1); Chloride, Blood 98 mmol/L (98-108); Creatinine, Blood 0.62 mg/dL (0.40-1.00); Glomerular Filtration Rate >60 (60-); Glucose, Blood 230 mg/dL (70-99); Potassium, Blood 3.2 mmol/L (3.5-5.5); Sodium, Blood 140 mmol/L (136-145)
--- NOTE | 2021-07-08 19:02 | NUR ---
Alert and oriented x 3 , denies any pain, headache, dizziness and chest pain. Patient is desat on activities, Continue on 1 L N/C , SP02 at 93% and above. Continue on clinimix . Vital signs are stable. Continue on ABO therapy for covid/PNA, no adverse effects noted. USE bedside commode for BM. No acute event occur during shift. Continue to monitor.
[2021-07-09 06:05] LABS: BASOPHILS ABSOLUTE AUTO 0.03 K/mm3 (0.00-0.23); BASOPHILS PERCENT AUTO 0 % (0-2); EOSINOPHILS PERCENT AUTO 0 % (0-6); Hematocrit 39.7 % (33.0-51.0); Hemoglobin 12.6 g/dL (11.5-16.0); IMMATURE GRAN ABSOLUTE AUTO 0.22 K/mm3 (0.00-0.10); IMMATURE GRAN PERCENT AUTO 1 % (0-1); LYMPHOCYTES ABSOLUTE AUTO 1.23 K/mm3 (0.84-5.20); LYMPHOCYTES PERCENT AUTO 6 % (21-46); MONOCYTES ABSOLUTE AUTO 0.72 K/mm3 (0.16-1.47); MONOCYTES PERCENT AUTO 4 % (4-13); Mean Corpuscular HGB 26.2 pg (26.0-34.0); Mean Corpuscular HGB Conc 31.7 g/dL (31.5-36.5); Mean Corpuscular Volume 83 fL (80-100); NEUTROPHILS ABSOLUTE AUTO 17.43 K/mm3 (1.96-9.15); NEUTROPHILS PERCENT AUTO 89 % (41-73); NRBC ABSOLUTE 0.02 K/mm3 (0.00-0.02); NRBC Auto 0.1 /100 WBC (0.0-0.2); Platelet Count 524 K/mm3 (150-400); RDW Coefficient Variation 14.6 % (11.7-14.2); RDW Standard Deviation 42.5 fL (35.1-46.3); Red Blood Cell Count 4.81 M/mm3 (3.80-5.20); White Blood Cell Count 19.63 K/mm3 (4.00-11.30)
--- NOTE | 2021-07-09 06:10 | NUR ---
INVESTOR SUMMARY ADMITTED FOR COVID19. PT IS A DNR. PT'S TB TEST WAS NEGATIVE. PT HAS BEEN SATTING LOW TO MID 90S ON 1L THROUGHOUT THE SHIFT. PT STILL SOB WHEN BEING REPOSITIONED. PT IS ON BEDREST. RECEIVING CLINIMIX FOR NUTRITION SUPPLEMENT. RECEIVING IV ABX THERAPY. SHE IS ALERT AND ORIENTED AND PLEASANT. NO OTHER CONCERNS THIS SHIFT. ISOLATION MAINTAINED.
[2021-07-09 06:51] LABS: Anion Gap 11 mmol/L (6-16); Blood Urea Nitrogen 40 mg/dL (8-24); Bun/Creatinine Ratio 62.1 (12.0-20.0); CO2, Blood 30 mmol/L (21-32); Calcium, Blood 9.2 mg/dL (8.5-10.1); Chloride, Blood 98 mmol/L (98-108); Creatinine, Blood 0.64 mg/dL (0.40-1.00); Glomerular Filtration Rate >60 (60-); Glucose, Blood 230 mg/dL (70-99); Potassium, Blood 3.9 mmol/L (3.5-5.5); Sodium, Blood 139 mmol/L (136-145)
--- NOTE | 2021-07-09 18:33 | NUR ---
Alert and oriented x3 , able to make needs known. Denies any pain. One person assist with Adls. Clinimix for nutrition supplement discontinued and patient is on puree diet,tolerating. SBP is stable 140 while DBP is elevated -124. Continue on 1 L N/C , No shortness at rest , she can be dsypenic on activities. Insulin was given for blood glucose coverage, continue to monitor.
--- NOTE | 2021-07-09 22:36 | NUR ---
CARDIAC TELEMETRY MONITORING PLACED ON PT AT ABOUT 0. THE FIRST TELE BOX THAT WAS PLACED WAS #[id number], AND THE SWITCH OPERATORS SUPERVISOR, NOVEMBER STATED THAT SHE DIDNOT SEE THE RHTHM COMING UP ON THE SCREEN AT ABOUT [phone]. NEW BOX RECEIVED, #[id number] AND NOVEMBER, SWITCH OPERATORS SUPERVISOR CONFIRMED, RHYTHM OF AFIB, RATE 94, AT ABOUT 2220. PT GIVEN PRN IV LOPRESSOR 5MG (ORDERED PRN FOR SBP >160) AT 2. AT 2238-SWITCH OPERATORS SUPERVISOR, NOVEMBER REPORTS AFIB, HR 75. WILL CONTINUE TO MONITOR.
--- NOTE | 2021-07-09 22:46 | NUR ---
CALLED RECEIVED FROM Sp[employer], NOVEMBER STATING THAT THE PT'S HEART RHYTHM HAS CONVERTED FROM AFIB TO SINUS RHYTHM WITH PVC'S, HEART IN THE 50s-60s. WHILE SPEAKING TO ME, SHE REPORTED THAT THE PT'S RHYTHM IS GOING BACK AND FORTH FROM SINUS RHYTHM TO AFIB. PT REMAINS ASYMPTOMATIC. WILL CONTIUNE TO MONITOR.
--- NOTE | 2021-07-10 02:14 | NUR ---
0155, PT TELE: SINUS RHYTHM WITH PACs, RATE 68, VERIFIED WITH NOVEMBER, CRIMINAL INVESTIGATIVE AGENT
[2021-07-10 05:56] LABS: BASOPHILS ABSOLUTE AUTO 0.03 K/mm3 (0.00-0.23); BASOPHILS PERCENT AUTO 0 % (0-2); EOSINOPHILS ABSOLUTE AUTO 0.15 K/mm3 (0.00-0.68); EOSINOPHILS PERCENT AUTO 1 % (0-6); Hematocrit 37.5 % (33.0-51.0); Hemoglobin 11.7 g/dL (11.5-16.0); IMMATURE GRAN PERCENT AUTO 1 % (0-1); LYMPHOCYTES ABSOLUTE AUTO 2.27 K/mm3 (0.84-5.20); LYMPHOCYTES PERCENT AUTO 11 % (21-46); MONOCYTES ABSOLUTE AUTO 1.01 K/mm3 (0.16-1.47); MONOCYTES PERCENT AUTO 5 % (4-13); Mean Corpuscular HGB 26.4 pg (26.0-34.0); Mean Corpuscular HGB Conc 31.2 g/dL (31.5-36.5); Mean Corpuscular Volume 85 fL (80-100); Mean Platelet Volume 10.3 fL (9.1-12.4); NEUTROPHILS ABSOLUTE AUTO 16.29 K/mm3 (1.96-9.15); NEUTROPHILS PERCENT AUTO 82 % (41-73); NRBC ABSOLUTE 0.02 K/mm3 (0.00-0.02); NRBC Auto 0.1 /100 WBC (0.0-0.2); Platelet Count 460 K/mm3 (150-400); RDW Standard Deviation 45.2 fL (35.1-46.3); Red Blood Cell Count 4.44 M/mm3 (3.80-5.20); White Blood Cell Count 19.95 K/mm3 (4.00-11.30)
[2021-07-10 06:51] LABS: Anion Gap 12 mmol/L (6-16); Blood Urea Nitrogen 38 mg/dL (8-24); Bun/Creatinine Ratio 55.4 (12.0-20.0); CO2, Blood 30 mmol/L (21-32); Calcium, Blood 9.1 mg/dL (8.5-10.1); Chloride, Blood 99 mmol/L (98-108); Creatinine, Blood 0.69 mg/dL (0.40-1.00); Glomerular Filtration Rate >60 (60-); Glucose, Blood 154 mg/dL (70-99); Potassium, Blood 4.2 mmol/L (3.5-5.5); Sodium, Blood 141 mmol/L (136-145)
--- NOTE | 2021-07-10 19:10 | NUR ---
Alert and orineted x3 ,anxious and able to make needs known. Denies any pain. One person assist with adls. On NPO for per speech. vital signs are stable. Tele monitor DC . On continue on 1 L n/c , sp02 at 94 % or greater. Continue to monitor.
--- NOTE | 2021-07-11 04:40 | NUR ---
SHIFT SUMMARY PATIENT HAD NO ACUTE CHANGES. AXOX 3 AND 1-2 ASSIST TO BSC. POWERGLIDE VERONICA INTACT. ON 1L O2 NC. HR RATE DROPS INTO 40'S SLEEPING. CBG 197. DROPLET PRECAUTIONS. DENIES PAIN, SOB, AND N/V. VSS/AFEBRILE. TAKES MEDICATION WHOLE IN APPLESAUCE. CALL LIGHT IN REACH. BED IN LOWEST POSITION. WILL CONTINUE TO MONITOR UNTIL DAY SHIFT NURSE ASSUMES CARE.
--- NOTE | 2021-07-11 18:20 | NUR ---
Alert and oriented x3 with mild anxiety. Denies any pain. One person assist with ADLS and two persons assist with bed mobility. Started on clinimix 100 ml/hr for nutrition supplement. Insulin was given for blood sugar coverage. Vital signs are stable. Continue on 1 L n/c , no SOB noted. Denies any chest pain, headache, dizziness and fever. SP02 at 94% or greater. Continue to monitor.
--- NOTE | 2021-07-12 06:11 | NUR ---
PT REMAINS ON DROPLET/AIRBORNE ISOLATION. ON 1L O2 VIA NC W/ CONTINUOUS PULSE OX. O2 SAT IN THE LOW-MID 90s, HR IN THE HIGH 50s-LOW 60s. BG 180 LAST NIGHT. L UPPER ARM POWERGLIDE REMAINS IN PLACE, SITE BENIGN W/ CLINIMEX INFUSING ORDERED. HOB ELEVATED.NO COMPLAINTS. PT RESTING IN BED WITH EYES CLOSED, HAD A RESTFUL NIGHT. BED IN LOW POSITION WITH THE CALL LIGHT WITHIN EASY REACH. WILL CONTINUE TO MONITOR.
--- NOTE | 2021-07-12 16:40 | NUR ---
SHIFT SUMMARY PATIENT IS ALERT AND ORIENTED X2-X3, PLEASANT AND COOPERATIVE WITH CARE. THE PATIENT HAD ANOTHER SWALLOW EVAL THIS SHIFT. THE PATIENT IS NOW GETTING CLINIMEX WITH MULTIVITAMINS AND LIPIDS. UP TO BEDSIDE CHAIR WITH THERAPY THIS SHIFT. THE PATIENT REMAINS NPO. ON 1LPM O2 VIA NASAL CANNULA SATTING ABOVE 95% VITAL SIGNS STABLE, CALL LIGHT WITHIN REACH. WILL CONTINUE TO CARE FOR THE PATIENT UNTIL SHIFT REPORT IS GIVEN TO ONCOMING NURSE.
--- NOTE | 2021-07-13 05:55 | NUR ---
PT RESTING WITH EYES CLOSED. REMAINS IN ISOLATION. VERONICA POWERGLIDE PATENT WITH CLINIMIX INFUSING ORDERED. HOSPITALIST WAS MADE AWARE OF CONDITION OF PT'S SKIN TO BILATERAL GROIN, SACRUM AND PERINEAL AREA. ORDERS RECEIVED TO PLACE A SAMUEL CATHETER. ORDERS CARRIED OUT. 16 FR SAMUEL CATHETER PLACED, PATENT, DRAINING CLEAR, LUNA URINE VIA GRAVITY. PT WAS EDUCATED AND VERBALIZED HER UNDERSTANDING. PT TOLERATED THE SAMUEL CATHETER INSERTION WELL. NO COMPLAINTS. BG 214 MG/DL LAST NIGHT, NO INSULIN COVERAGE REQUIRED. PT REMAINS NPO. BED IS IN LOW POSITION WITH THE CALL LIGHT WITHIN EASY REACH.
--- NOTE | 2021-07-13 16:47 | NUR ---
SHIFT SUMMARY PATIENT IS ALERT AND ORIENTED X3, PLEASANT AND COOPERATIVE WITH CARE. PATIENT PASSED SWALLOW EVAL THIS SHIFT. THEY HAVE BEEN TOLERATING A PUREE DIET WELL SO FAR. BLOOD PRESSURE MEDS GIVEN THIS AFTERNOON. THE PATIENT IS NOW ON RA SATTING ABOVE 90% THE PATIENT HAS A SAMUEL PATENT AND DRAINING YELLOW URINE TO GRAVITY. VSS. THIS NURSE WILL CONTINUE TO CARE FOR THE PATIENT UNTIL SHIFT REPORT IS GIVEN TO THE ONCOMING NURSE.
--- NOTE | 2021-07-14 05:45 | NUR ---
PT RESTED OVERNIGHT. REMAINS ON ROOM AIR. ISOLATION PRECAUTIONS MAINTAINED. PT TOLERATED PO INTAKE WITH CRUSHED MEDS IN APPLESAUCE AND HONEY THICKENED LIQUIDS (ADMINISTERED BY SPOON WITH HOB ELEVATED 90 DEGREES)WITHOUT INCIDENT. CONTINUOUS PULSE OXIMETRY REMAINS IN PLACE, O2 SATURATIONS RANGING IN THE MID 90s AND HR IN 60s-70s. SAMUEL CATHETER IN PLACE, PATENT, DRAINING URINE VIA GRAVITY. CBG LAST NIGHT WAS 151MG/DL. VSS. BED IS IN LOW POSITION WITH THE CALL LIGHT WITHIN EASY REACH. WILL CONTINUE TO MONITOR.
--- NOTE | 2021-07-14 07:04 | NUR ---
0600 DOSE PANTOPRAZOLE HELD DUE TO PT'S C/O NAUSEA. DR. SMITH WAS NOTIFIED AND NEW ORDERS RECEIVED. ONCOMING NURSE HAS ALREADY RECEIVED SHIFT REPORT AND WAS UPDATED. PT UPDATED WELL.
--- NOTE | 2021-07-14 18:25 | NUR ---
SHIFT SUMMARY PATIENT IS ALERT AND ORIENTED X2-3, PLEASANT AND COOPERATIVE WITH CARE. THE PATIENT HAS BEEN BENEFITING FROM 1LPM OF O2 THIS SHIFT SATTING AT 93% ON RA SATS WERE BETWEEN 86-88% PATIENT HAS A SAMUEL PATENT AND DRAINING TO GRAVITY. THE PATIENT HAD SOME NAUSEA AND LEFT SHOULDER PAIN AT THE START OF THIS SHIFT. THE PAIN WAS RELIEVED WITH IBPROFEN. THE PATIENT SLEPT THROUGH BREAKFAST AND LUNCH. THE PATIENT WAS ABLE TO WAKE UP AND TOLERATE DINNER WELL. THE PATIENT IS GETTING LIPIDS Q SHIFT CURRENTLY RUNNING AT 25MLS/HR. NOTHING FURTHER REPORT. THE PATIENT IS CURRENTLY SITTING UP IN BED. CALL LIGHT WITHIN REACH. VSS.
--- NOTE | 2021-07-15 06:52 | NUR ---
PT IS A/O X3, NO ACUTE CHANGES, PATIENT TOOK MEDS WITH PUDDING , PATIENT SLEPT THROUGH THE NIGHT. RIGHT FIED OF VISION IS IMPAIRED
--- NOTE | 2021-07-15 08:24 | NUR ---
pt laying in bed states she is doing ok she thinks, appears calm, a/ox2, cooperative with care, follows commands well, denies pain, lungs are clear in upper [place], fine crackles in bases, is on 1 liter o2 via n/c, resp even and unlabored, no cough noted, hrr, murmur noted, no edema noted, ppp+1, cap refill <3sec, vs stable, afebrile, iv site to mihaela is power glide, patent, btx4, abd flat soft nontender, pryor cath draining clear sampson urine, skin has blisters to heels, heel protectors in place, excoriated kelsey area, will keep ointment on, rachel, call light in reach.
[2021-07-15] MEDS ORDERED: Amlodipine Besyl5 MG PO (16:04)
[2021-07-15] MEDS ORDERED: AMOCLA875 PO (16:05)
[2021-07-15] MEDS ORDERED: VISBIOME 112.51 EACH PO (16:05)
--- NOTE | 2021-07-15 16:58 | NUR ---
[facility] IV REMOVED INTACT. PAPERWORK GIVEN TO TRANSPORT. PT HAS ALL HER BELONGINGS.
== END 2021-07-15 17:00 | DRG 871 ==
LOC: ER 00:51 → MEDS 02:42 → ICUE 02:42 → ERHOLD 02:42 → MEDS 13:28 → ICUE 06-30 06:16 → MEDS 07-04 01:07
PROVIDERS: Family Medicine; Student in an Organized Health Care Education/Training Program; ADMIT Internal Medicine
PROC: 8E0ZXY6 Isolation (ICD-10-PCS; principal; 2021-06-27)
PROC: 5A09357 Assistance with Respiratory Ventilation, Less than 24 Consecutive Hours, Continuous Positive Airway Pressure (ICD-10-PCS; 2021-06-27)
PROC: XW033E5 Introduction of Remdesivir Anti-infective into Peripheral Vein, Percutaneous Approach, New Technology Group 5 (ICD-10-PCS; 2021-06-27)
PROC: 3E0DX3Z Introduction of Anti-inflammatory into Mouth and Pharynx, External Approach (ICD-10-PCS; 2021-06-27)
PROC: 3E0333Z Introduction of Anti-inflammatory into Peripheral Vein, Percutaneous Approach (ICD-10-PCS; 2021-06-30)
DX: A41.89 Other specified sepsis (principal); U07.1 COVID-19; J12.82 Pneumonia due to coronavirus disease 2019; J15.9 Unspecified bacterial pneumonia; J96.21 Acute and chronic respiratory failure with hypoxia; G92.8 Other toxic encephalopathy; Z66 Do not resuscitate; J44.0 Chronic obstructive pulmonary disease with (acute) lower respiratory infection; L03.116 Cellulitis of left lower limb; I50.22 Chronic systolic (congestive) heart failure; J44.1 Chronic obstructive pulmonary disease with (acute) exacerbation; I48.0 Paroxysmal atrial fibrillation; E11.9 Type 2 diabetes mellitus without complications; Z78.1 Physical restraint status; M81.0 Age-related osteoporosis without current pathological fracture; F32.A Depression, unspecified; I11.0 Hypertensive heart disease with heart failure; K44.9 Diaphragmatic hernia without obstruction or gangrene; I95.2 Hypotension due to drugs; J98.4 Other disorders of lung; T42.4X5A Adverse effect of benzodiazepines, initial encounter; F41.9 Anxiety disorder, unspecified; I25.10 Atherosclerotic heart disease of native coronary artery without angina pectoris; Z88.5 Allergy status to narcotic agent; Z88.0 Allergy status to penicillin; Z79.84 Long term (current) use of oral hypoglycemic drugs; Z79.899 Other long term (current) drug therapy; Z86.73 Personal history of transient ischemic attack (TIA), and cerebral infarction without residual deficits; I25.2 Old myocardial infarction; Z90.710 Acquired absence of both cervix and uterus; Z98.890 Other specified postprocedural states; Z87.891 Personal history of nicotine dependence
CPT/HCPCS: 0241U; 31720; 36415; 36600; 51702; 71045; 71260; 80048; 80053; 80202; 81001; 81003; 82803; 82947; 83605; 83735; 83880; 84132; 84145; 84484; 85025; 85027; 85379; 86480; 87040; 87070; 87086; 87205; 92526; 92610; 93005; 93010; 93970; 94640; 94660; 94760; 94762; 96365-59; 96375-59; 97110; 97110-CQ; 97162; 97165; 97530; 97535; 99285-25; A9270; C1751; J0295; J0360; J0456; J0696; J0713; J1650; J2060; J2405; J2543; J2930; J3370; J3480; J7030; J7040; J7050; J7512; Q9967

== ENCOUNTER → 2021-07-23 | Outpatient (CLI) | payer OTHER ==
[~2021-07-23] MED LIST changes: +AMOCLA875 PO; +Amlodipine Besyl5 MG PO; +VISBIOME 112.51 EACH PO
[2021-07-23 18:01] LABS: BASOPHILS ABSOLUTE AUTO 0.07 K/mm3 (0.00-0.23); BASOPHILS PERCENT AUTO 1 % (0-2); EOSINOPHILS ABSOLUTE AUTO 0.19 K/mm3 (0.00-0.68); EOSINOPHILS PERCENT AUTO 2 % (0-6); Hematocrit 36.8 % (33.0-51.0); Hemoglobin 11.6 g/dL (11.5-16.0); IMMATURE GRAN ABSOLUTE AUTO 0.04 K/mm3 (0.00-0.10); IMMATURE GRAN PERCENT AUTO 1 % (0-1); LYMPHOCYTES ABSOLUTE AUTO 1.48 K/mm3 (0.84-5.20); LYMPHOCYTES PERCENT AUTO 18 % (21-46); MONOCYTES ABSOLUTE AUTO 0.32 K/mm3 (0.16-1.47); MONOCYTES PERCENT AUTO 4 % (4-13); Mean Corpuscular HGB 26.5 pg (26.0-34.0); Mean Corpuscular HGB Conc 31.5 g/dL (31.5-36.5); Mean Corpuscular Volume 84 fL (80-100); Mean Platelet Volume 11.2 fL (9.1-12.4); NEUTROPHILS ABSOLUTE AUTO 6.27 K/mm3 (1.96-9.15); NEUTROPHILS PERCENT AUTO 75 % (41-73); Platelet Count 288 K/mm3 (150-400); RDW Coefficient Variation 15.3 % (11.7-14.2); RDW Standard Deviation 46.3 fL (35.1-46.3); Red Blood Cell Count 4.37 M/mm3 (3.80-5.20); White Blood Cell Count 8.37 K/mm3 (4.00-11.30)
[2021-07-23 18:52] LABS: Alanine Aminotransfer (ALT/SGP 77 U/L (12-78); Albumin, Blood 2.3 g/dL (3.4-5.0); Albumin/Globulin Ratio 0.5 (0.8-1.8); Alk Phos 100 U/L (50-136); Anion Gap 7 mmol/L (6-16); Aspartate Aminotrans (AST/SGOT 34 U/L (12-37); Bilirubin, Total 0.3 mg/dL (0.1-1.0); Blood Urea Nitrogen 18 mg/dL (8-24); Bun/Creatinine Ratio 25.4 (12.0-20.0); CO2, Blood 30 mmol/L (21-32); Calcium, Blood 8.9 mg/dL (8.5-10.1); Chloride, Blood 99 mmol/L (98-108); Creatinine, Blood 0.71 mg/dL (0.40-1.00); Globulin, Blood 4.2 g/dL (2.2-4.0); Glomerular Filtration Rate >60 (60-); Glucose, Blood 118 mg/dL (70-99); Potassium, Blood 3.2 mmol/L (3.5-5.5); Sodium, Blood 136 mmol/L (136-145); Total Protein, Blood 6.5 g/dL (6.4-8.2)
== END | disposition home or self-care (01) ==
LOC: EDSTATUS 14:32 → LAB RH 16:36
PROVIDERS: Internal Medicine
DX: U07.1 COVID-19 (principal)
CPT/HCPCS: 80053; 85025

== ENCOUNTER → 2021-08-14 | Outpatient (CLI) | payer OTHER ==
[2021-08-14 14:51] LABS: Hematocrit 38.2 % (33.0-51.0); Hemoglobin 11.5 g/dL (11.5-16.0); Mean Corpuscular HGB 25.8 pg (26.0-34.0); Mean Corpuscular HGB Conc 30.1 g/dL (31.5-36.5); Mean Corpuscular Volume 86 fL (80-100); Mean Platelet Volume 10.3 fL (9.1-12.4); Platelet Count 448 K/mm3 (150-400); RDW Coefficient Variation 16.1 % (11.7-14.2); RDW Standard Deviation 50.3 fL (35.1-46.3); Red Blood Cell Count 4.45 M/mm3 (3.80-5.20); White Blood Cell Count 8.47 K/mm3 (4.00-11.30)
[2021-08-14 15:11] LABS: Alanine Aminotransfer (ALT/SGP 32 U/L (12-78); Albumin, Blood 2.8 g/dL (3.4-5.0); Albumin/Globulin Ratio 0.6 (0.8-1.8); Alk Phos 99 U/L (50-136); Anion Gap 9 mmol/L (6-16); Aspartate Aminotrans (AST/SGOT 18 U/L (12-37); Bilirubin, Total 0.4 mg/dL (0.1-1.0); Blood Urea Nitrogen 9 mg/dL (8-24); Bun/Creatinine Ratio 14.1 (12.0-20.0); CO2, Blood 31 mmol/L (21-32); Calcium, Blood 8.9 mg/dL (8.5-10.1); Chloride, Blood 99 mmol/L (98-108); Creatinine, Blood 0.64 mg/dL (0.40-1.00); Globulin, Blood 4.4 g/dL (2.2-4.0); Glomerular Filtration Rate >60 (60-); Glucose, Blood 142 mg/dL (70-99); Sodium, Blood 139 mmol/L (136-145); Total Protein, Blood 7.2 g/dL (6.4-8.2)
== END ==
LOC: EDSTATUS 10:49 → LAB RH 13:04
PROVIDERS: Internal Medicine
DX: U07.1 COVID-19 (principal)
CPT/HCPCS: 80053; 85027

== ENCOUNTER → 2021-09-12 | Outpatient (CLI) | payer OTHER ==
[2021-09-12 15:19] LABS: BASOPHILS ABSOLUTE AUTO 0.06 K/mm3 (0.00-0.23); BASOPHILS PERCENT AUTO 1 % (0-2); EOSINOPHILS ABSOLUTE AUTO 0.12 K/mm3 (0.00-0.68); EOSINOPHILS PERCENT AUTO 2 % (0-6); Hematocrit 39.6 % (33.0-51.0); Hemoglobin 11.6 g/dL (11.5-16.0); IMMATURE GRAN ABSOLUTE AUTO 0.01 K/mm3 (0.00-0.10); IMMATURE GRAN PERCENT AUTO 0 % (0-1); LYMPHOCYTES ABSOLUTE AUTO 1.79 K/mm3 (0.84-5.20); LYMPHOCYTES PERCENT AUTO 24 % (21-46); MONOCYTES ABSOLUTE AUTO 0.51 K/mm3 (0.16-1.47); MONOCYTES PERCENT AUTO 7 % (4-13); Mean Corpuscular HGB 24.5 pg (26.0-34.0); Mean Corpuscular HGB Conc 29.3 g/dL (31.5-36.5); Mean Corpuscular Volume 84 fL (80-100); NEUTROPHILS ABSOLUTE AUTO 4.99 K/mm3 (1.96-9.15); NEUTROPHILS PERCENT AUTO 67 % (41-73); Platelet Count 356 K/mm3 (150-400); RDW Coefficient Variation 15.9 % (11.7-14.2); RDW Standard Deviation 49.1 fL (35.1-46.3); Red Blood Cell Count 4.73 M/mm3 (3.80-5.20); White Blood Cell Count 7.48 K/mm3 (4.00-11.30)
[2021-09-12 15:43] LABS: Albumin, Blood 3.7 g/dL (3.4-5.0); Albumin/Globulin Ratio 0.9 (0.8-1.8); Bilirubin, Total 0.4 mg/dL (0.1-1.0); Bun/Creatinine Ratio 11.8 (12.0-20.0); Calcium, Blood 9.5 mg/dL (8.5-10.1); Creatinine, Blood 0.93 mg/dL (0.40-1.00); Globulin, Blood 4.3 g/dL (2.2-4.0); Potassium, Blood 4.2 mmol/L (3.5-5.5)
== END ==
LOC: LAB SHORT 12:35 → LAB 12:35
PROVIDERS: Physician Assistant Medical
DX: U07.1 COVID-19 (principal); I11.0 Hypertensive heart disease with heart failure; I50.9 Heart failure, unspecified
CPT/HCPCS: 80053; 83880; 85025